=== PATIENT | female | born 1940 | race Caucasian/White ===

== ENCOUNTER 2020-08-17 09:51 | Outpatient (REF) | payer SELFPAY | END 2020-08-17 09:52 | disposition home or self-care (01) | LOC: HO.HAP 09:51 | PROVIDERS: PCP Internal Medicine; Referring Provider Internal Medicine; Visit Provider Internal Medicine | DX: Z13.89 Encounter for screening for other disorder (principal) | CPT/HCPCS: 92700 ==

== ENCOUNTER 2020-08-24 10:11 | Outpatient (REF) | payer MEDICARE, OTHER, SELFPAY ==
[2020-08-24 11:39] LABS: Glucose Urine UA NEG (NEG); Leukocyte Esterase Urine NEG (NEG); Nitrite Urine NEG (NEG); Urine Blood NEG (NEG); Urine Ketones NEG (NEG); Urine Protein NEG (NEG-TRACE)
[2020-08-24 11:41] LABS: Hemoglobin 12.2 g/dl (12.0-16.0); Mean Corpuscular Hemoglobin 31.9 pg (27.0-33.0); Mean Corpuscular Volume 96.6 fL (80-98); Mean Platelet Volume 10.4 fL (9.4-12.3); Platelet Count 245 X10*3/uL (160-400); Red Blood Count 3.83 X10*6/uL (4.20-5.50); Red Cell Distribution Width 11.7 % (11.0-16.0); White Blood Count 6.9 X10*3/uL (4.8-10.8)
[2020-08-24 11:55] LABS: Appearance Urine CLEAR; Color Urine YELLOW
[2020-08-24 12:28] LABS: Alanine Aminotransferase 13 U/L (0-31); Albumin Level 4.2 g/dL (3.5-5.0); Alkaline Phosphatase 72 U/L (39-117); Anion Gap 14 (12-20); Aspartate Amino Transferase 20 U/L (5-31); Bilirubin Total 0.3 mg/dL (0.0-1.0); Blood Urea Nitrogen 19 mg/dL (9-16); Calcium 8.7 mg/dL (8.4-10.2); Carbon Dioxide 27 mmol/L (22-29); Chloride 106 mmol/L (96-108); Cholesterol 193 mg/dL; Estimated Glomerular Filt Rate 52; Glucose Fasting 88 mg/dL (60-99); HDL Cholesterol 47 mg/dL; LDL Cholesterol Calculated 130 mg/dl; Potassium 5.2 mmol/l (3.3-5.1); Sodium 142 mmol/L (135-145); Total Protein 7.4 g/dL (6.5-8.0); Triglycerides 80 mg/dL
[2020-08-24 12:30] LABS: Thyroid Stimulating Hormone 0.76 mIU/mL (0.32-4.0)
== END 2020-08-24 10:12 | disposition home or self-care (01) ==
LOC: HO.HMGCLDS 10:11
PROVIDERS: Absent Provider Internal Medicine Nephrology; PCP Internal Medicine; Visit Provider Internal Medicine
DX: E78.00 Pure hypercholesterolemia, unspecified (principal); I10 Essential (primary) hypertension; R35.1 Nocturia; M15.9 Polyosteoarthritis, unspecified; E55.9 Vitamin D deficiency, unspecified; Z12.31 Encounter for screening mammogram for malignant neoplasm of breast
CPT/HCPCS: 36415; 80053; 80061; 81003; 82306; 84443; 85027; 87086

== ENCOUNTER 2020-08-30 13:46 | Outpatient (REF) | payer MEDICARE, OTHER, SELFPAY ==
[2020-08-30 14:40] LABS: Glucose Urine UA NEG (NEG); Leukocyte Esterase Urine 2+ (NEG); Nitrite Urine NEG (NEG); Specific Gravity - Urine 1.025 (1.005-1.025); Urine Blood 1+ (NEG); Urine Ketones 5 MG/DL (NEG); Urine Protein TRACE MG/DL (NEG-TRACE)
[2020-08-30 14:41] LABS: Appearance Urine CLOUDY; Color Urine YELLOW
[2020-08-30 14:51] LABS: Squamous Epithelial Cell Urine TRACE /LPF
[2020-08-30 14:52] LABS: Bacteria Urine 4+ /LPF
== END 2020-08-30 13:47 | disposition home or self-care (01) ==
LOC: HO.LAB 13:46
PROVIDERS: PCP Internal Medicine; Visit Provider Internal Medicine
DX: R30.0 Dysuria (principal); R10.2 Pelvic and perineal pain
CPT/HCPCS: 81001; 87086; 87088; 87186

== ENCOUNTER 2020-10-02 12:14 | Outpatient (REF) | payer MEDICARE, OTHER, SELFPAY ==
--- NOTE | 2020-10-02 12:19 | MM_ITS ---
EXAMINATION: MM SCREENING DIGITAL BREAST TOMOSYNTHESIS, BILATERAL CLINICAL INFORMATION: Screening. Asymptomatic. The lifetime risk of breast cancer based on the Tyrer-Cuzick Model is under 2%. COMPARISON: Outside mammography: 04/10/2019, 04/06/2018, 03/10/2017 ([facility]). TECHNIQUE: Digital breast tomosynthesis is performed in both the craniocaudal and mediolateral oblique views along with computer-aided detection (CAD). Synthesized 2D images are generated from the tomosynthesis. FINDINGS: There are scattered areas of fibroglandular density (ACR BI-RADS breast composition Category b). There are no significant masses, abnormal calcifications, or other abnormalities. There are ductal secretory calcifications posterior central left breast, coarser than on prior outside exams. Parenchymal pattern is otherwise similar to prior studies. No developing density. The axilla and skin contours are unremarkable. MM/MM tomosynthesis screening BI IMPRESSION: No significant changes from prior outside studies. ASSESSMENT: BI-RADS 2: Benign RECOMMENDATION: Routine annual mammography screening. This patient's information was entered into a reminder system with a target due date for their next mammogram.
== END 2020-10-02 12:15 | disposition home or self-care (01) ==
LOC: HO.MAMMO 12:14
PROVIDERS: Visit Provider Internal Medicine
DX: Z12.31 Encounter for screening mammogram for malignant neoplasm of breast (principal)
CPT/HCPCS: 77063; 77067

== ENCOUNTER 2020-11-16 13:32 | Outpatient (REF) | payer SELFPAY | END 2020-11-16 13:33 | disposition home or self-care (01) | LOC: HO.HAP 13:32 | PROVIDERS: Visit Provider Internal Medicine | DX: Z13.89 Encounter for screening for other disorder (principal) ==

== ENCOUNTER 2020-11-29 14:59 | Outpatient (REF) | payer SELFPAY | END 2020-11-29 15:00 | disposition home or self-care (01) | LOC: HO.HAP 14:59 | PROVIDERS: Visit Provider Internal Medicine | DX: Z46.1 Encounter for fitting and adjustment of hearing aid (principal); H90.3 Sensorineural hearing loss, bilateral | CPT/HCPCS: V5014 ==

== ENCOUNTER 2020-12-29 15:30 | Outpatient (REF) | payer SELFPAY | END 2020-12-29 15:31 | disposition home or self-care (01) | LOC: HO.HAP 15:30 | PROVIDERS: Visit Provider Internal Medicine | DX: Z13.89 Encounter for screening for other disorder (principal) ==

== ENCOUNTER 2021-01-09 10:44 | Outpatient (REF) | payer MEDICARE, OTHER, SELFPAY ==
--- NOTE | ~2021-01-09 | MM_ITS ---
EXAMINATION: BONE DENSITOMETRY CLINICAL INDICATION: Screening for osteoporosis. COMPARISON: Previous BD dated 01/30/2018 and baseline BD dated 10/26/2007. TECHNIQUE: Using a MediaV DXA System (software version: 13.1) manufactured by [email or web address], dual-energy x-ray absorptiometry was performed of the lumbar spine and left hip. The images are of good technical quality. Summary results are attached. FINDINGS: AP SPINE L1-L4: Current: BMD 0.991 g/cm2, Z-score 0.3, T-score -1.6, osteopenia, 6.7% decrease from previous, 12.2% decrease from baseline (<5% change is not significant). Prior: BMD 1.062 g/cm2. Baseline: BMD 1.129 g/cm2. LEFT FEMUR, NECK: Current: BMD 0.907 g/cm2, Z-score 1.3, T-score -0.9, normal. Prior: BMD 0.864 g/cm2. Baseline: BMD 1.052 g/cm2. LEFT FEMUR, TOTAL: Current: BMD 0.798 g/cm2, Z-score 0.4, T-score -1.7, osteopenia, 1.6% decrease from previous, 26.0% decrease from baseline (<5% change is not significant). Prior: BMD 0.811 g/cm2. Baseline: BMD 1.078 g/cm2. IDENTIFIED RISK FACTORS: Osteoporosis, height loss, family history (parental hip fracture) menopause, hysterectomy, bilateral oophorectomy. HISTORY OF FRACTURE: None listed. MEDICATIONS: Multivitamin. MM/XR DEXA axial skeleton IMPRESSION: 1. DIAGNOSIS: Osteopenia based on the lowest T-score value of -1.7 in the total femur applying World Health Organization criteria. 2. 10-YEAR FRACTURE RISK PREDICTION, FRAX: Major osteoporotic fracture (clinical spine, forearm, hip or shoulder) 19.2%. Hip fracture 9.7%. 3. Treatment Recommendations: NOF guidelines recommend consideration for treatment in postmenopausal women and men age 50 and older presenting with the following: -A hip or vertebral (clinical or morphometric) fracture. -T-score less than or equal to -2.5 at the femoral neck or spine after appropriate evaluation to exclude secondary causes. -Low bone mass at the hip or spine and a 10-year fracture probability by FRAX of greater than or equal to 3% for hip fracture or greater than or equal to 20% for major osteoporotic fracture based on the [place] adapted WHO algorithm. 4. Other Recommendations: All treatment decisions require clinical judgment and consideration of individual patient factors, including patient preferences, comorbidities, previous drug use, risk factors not captured in the FRAX model (e.g. frailty, falls, vitamin D deficiency, increased bone turnover, interval significant decline in bone density) and possible under or overestimation of fracture risk by FRAX. Additional medical evaluation for secondary cause of low bone mineral density may be appropriate. FUTURE SCAN RECOMMENDATION: People with diagnosed cases of osteoporosis or at high risk for fracture should have regular bone mineral density tests. For patients eligible for Medicare, routine testing is allowed once every 2 years. The testing frequency can be increased to one year for patients who have rapidly progressing disease, those who are receiving or discontinuing medical therapy to restore bone mass, or have additional risk factors.
== END 2021-01-09 10:45 | disposition home or self-care (01) ==
LOC: HO.MAMMO 10:44
PROVIDERS: Visit Provider Obstetrics & Gynecology
DX: Z13.820 Encounter for screening for osteoporosis (principal); Z78.0 Asymptomatic menopausal state; R29.890 Loss of height; Z90.710 Acquired absence of both cervix and uterus; Z90.722 Acquired absence of ovaries, bilateral
CPT/HCPCS: 77080

== ENCOUNTER 2021-01-19 14:38 | Outpatient (REF) | payer SELFPAY | END 2021-01-19 14:39 | disposition home or self-care (01) | LOC: HO.HAP 14:38 | PROVIDERS: Visit Provider Internal Medicine | DX: Z13.89 Encounter for screening for other disorder (principal) ==

== ENCOUNTER 2021-01-22 10:04 | Outpatient (REF) | payer MEDICARE, OTHER, SELFPAY ==
--- NOTE | ~2021-01-22 | CT_ITS ---
EXAMINATION: CT ABDOMEN AND PELVIS WITHOUT CONTRAST CLINICAL INFORMATION: Urinary tract infection. COMPARISON: CT abdomen and pelvis dated 10/21/2019. TECHNIQUE: Multidetector volumetric imaging was performed from the superior aspect of the liver through the pubic symphysis. Sagittal and coronal reformatted images were obtained on the technologist's workstation. This CT examination was performed using dose optimization techniques as appropriate, variously including the following: *Automated exposure control *Adjustment of mA and/or kV according to patient size (this includes techniques or standardized protocols for targeted exams where dose is matched to indication/reason for exam; i.e. extremities or head) *Use of iterative reconstruction technique DLP: 339 mGy-cm FINDINGS: LUNG BASES: The visualized lung bases are unremarkable. LIVER, GALLBLADDER, AND BILIARY TREE: The liver is normal in size, shape, and attenuation. No focal hepatic lesion or biliary ductal dilatation is present. The gallbladder is surgically absent. PANCREAS: Unremarkable. SPLEEN: Unremarkable. ADRENAL GLANDS: Unremarkable. KIDNEYS AND URETERS: The kidneys are normal in size, shape, and attenuation. No hydronephrosis, hydroureter, or calculi seen. No perinephric stranding. BLADDER: No abnormal wall thickening, mass or calculus is seen. There is a tiny gas locule seen within the nondependent bladder (6:80 and 4:548). GASTROINTESTINAL TRACT: There is mild diverticulosis, without acute diverticulitis. There is a moderate stool burden. There is formed stool seen within distal small bowel loops (small bowel feces sign). No ceci bowel obstruction, free intraperitoneal air or abscess is seen. The vermiform appendix is not identified with certainty. ABDOMINAL WALL: There is a small fat-containing umbilical hernia. LYMPH NODES: Normal. VASCULAR: There is mild aortoiliac atherosclerotic calcification. No abdominal aortic aneurysm is seen. PELVIC VISCERA: Surgically absent. No pelvic mass, free fluid or lymphadenopathy is seen. OSSEOUS STRUCTURES: There is multi-level thoracolumbar degenerative disc disease and spondylosis. Degenerative disc disease is most pronounced at T11-T12 and L4-L5, with vacuum phenomenon. There are degenerative changes of the hips, severe on the left. No acute or aggressive osseous abnormality is seen. CT/CT abdomen pelvis wo con IMPRESSION: 1. No urinary calculus or obstructive uropathy is seen bilaterally. No bladder wall thickening is noted. There is a small locule of gas noted within the nondependent bladder, which can be associated with recent instrumentation or infection with a gas-forming organism. Recommend correlation with the patient's most recent urinalysis. 2. There is formed stool within distal small bowel loops (small bowel feces sign), suggesting delayed transit. No bowel ceci obstruction is seen. Recommend clinical correlation and follow-up imaging as clinically warranted. 3. There is mild diverticulosis, without acute diverticulitis. 4. The gallbladder and uterus are surgically absent. 5. No abdominopelvic mass, free fluid or lymphadenopathy is seen. 6. There are multi-level degenerative changes of the thoracolumbar spine.
== END 2021-01-22 10:05 | disposition home or self-care (01) ==
LOC: HO.CT 10:04
PROVIDERS: PCP Internal Medicine; Visit Provider Urology
DX: N39.0 Urinary tract infection, site not specified (principal)
CPT/HCPCS: 74176

== ENCOUNTER 2021-01-29 10:11 | Outpatient (REF) | payer MEDICARE, OTHER, SELFPAY ==
[2021-01-29 11:24] LABS: MANUAL DIFF FLAG NO
[2021-01-29 11:35] LABS: Glucose Urine UA NEG (NEG); Leukocyte Esterase Urine NEG (NEG); Nitrite Urine NEG (NEG); Specific Gravity - Urine 1.015 (1.005-1.025); Urine Blood NEG (NEG); Urine Ketones NEG (NEG); Urine Protein NEG (NEG-TRACE)
[2021-01-29 11:40] LABS: Appearance Urine CLEAR; Color Urine YELLOW
[2021-01-29 11:43] LABS: Basophils Absolute Auto 0.1 X10*3/uL (0.0-0.2); Eosinophils Absolute Auto 0.3 X10*3/uL (0.0-0.4); Eosinophils Percent Auto 4.7 % (0-4); Hematocrit 37.2 % (37-47); Hemoglobin 12.1 g/dl (12.0-16.0); Imm Gran Abs Auto 0.01 X10*3/uL (0.00-0.03); Imm Gran Pct Auto 0.2 % (0.0-0.4); Lymphocytes Absolute Auto 1.6 X10*3/uL (1.2-4.9); Lymphocytes Percent Auto 28.5 % (20-40); Mean Corpuscular HGB Conc 32.5 g/dl (31.0-35.0); Mean Corpuscular Hemoglobin 31.7 pg (27.0-33.0); Mean Corpuscular Volume 97.4 fL (80-98); Mean Platelet Volume 10.5 fL (9.4-12.3); Monocytes Absolute Auto 0.6 X10*3/uL (0.1-1.2); Monocytes Percent Auto 10.1 % (2-11); Neutrophils Absolute Auto 3.2 X10*3/uL (2.0-8.3); Neutrophils Percent Auto 55.5 % (45-73); Platelet Count 231 X10*3/uL (160-400); Red Blood Count 3.82 X10*6/uL (4.20-5.50); Red Cell Distribution Width 11.9 % (11.0-16.0); White Blood Count 5.7 X10*3/uL (4.8-10.8)
[2021-01-29 11:55] LABS: RBC Urine 0 /HPF (0); Squamous Epithelial Cell Urine TRACE /LPF; WBC Urine 0 /HPF (0-4)
[2021-01-29 12:09] LABS: Free T4 (Free Thyroxine) 0.87 ng/dL (0.71-1.85); Thyroid Stimulating Hormone 0.92 uIU/mL (0.32-4.0)
[2021-01-29 12:10] LABS: Alanine Aminotransferase 17 U/L (0-31); Albumin Level 4.3 g/dL (3.5-5.0); Alkaline Phosphatase 67 U/L (39-117); Anion Gap 13 (12-20); Aspartate Amino Transferase 20 U/L (5-31); Bilirubin Total 0.5 mg/dL (0.0-1.0); Blood Urea Nitrogen 19 mg/dL (9-16); Calcium 9.3 mg/dL (8.4-10.2); Carbon Dioxide 25 mmol/L (22-29); Chloride 108 mmol/L (96-108); Estimated Glomerular Filt Rate 52; Glucose Random 93 mg/dL (60-115); Potassium 5.4 mmol/L (3.3-5.1); Sodium 141 mmol/L (135-145); Total Protein 7.4 g/dL (6.5-8.0)
== END 2021-01-29 10:12 | disposition home or self-care (01) ==
LOC: HO.HMGCLDS 10:11
PROVIDERS: PCP Internal Medicine; Visit Provider Internal Medicine
DX: I10 Essential (primary) hypertension (principal); R68.89 Other general symptoms and signs; R30.0 Dysuria
CPT/HCPCS: 36415; 80053; 81001; 84439; 84443; 85025; 87086

== ENCOUNTER 2021-03-08 14:09 | Outpatient (REF) | payer MEDICARE, OTHER, SELFPAY ==
[2021-03-08 15:21] LABS: Potassium 5.3 mmol/L (3.3-5.1)
[2021-03-08 15:49] LABS: Vitamin D 25-OH Total 39.7 ng/mL (>30)
== END 2021-03-08 14:10 | disposition home or self-care (01) ==
LOC: HO.LAB 14:09
PROVIDERS: PCP Internal Medicine; Visit Provider Internal Medicine
DX: E87.5 Hyperkalemia (principal); E55.9 Vitamin D deficiency, unspecified
CPT/HCPCS: 36415; 82306; 84132

== ENCOUNTER 2021-04-05 09:00 | Outpatient (REF) | payer MEDICARE, OTHER, SELFPAY ==
[2021-04-05 10:45] LABS: Albumin Level 4.3 g/dL (3.5-5.0); Anion Gap 14 (12-20); Blood Urea Nitrogen 22 mg/dL (9-16); Calcium 9.5 mg/dL (8.4-10.2); Carbon Dioxide 26 mmol/L (22-29); Chloride 108 mmol/L (96-108); Estimated Glomerular Filt Rate 52; Glucose Random 92 mg/dL (60-115); Sodium 143 mmol/L (135-145)
== END 2021-04-05 09:01 | disposition home or self-care (01) ==
LOC: HO.LAB 09:00
PROVIDERS: PCP Internal Medicine; Visit Provider Internal Medicine
DX: M15.9 Polyosteoarthritis, unspecified (principal); I10 Essential (primary) hypertension
CPT/HCPCS: 36415; 80048; 82040

== ENCOUNTER 2021-04-06 15:15 | Outpatient (REF) | payer SELFPAY | END 2021-04-06 15:16 | disposition home or self-care (01) | LOC: HO.HAP 15:15 | PROVIDERS: Visit Provider Internal Medicine | DX: Z13.89 Encounter for screening for other disorder (principal) ==

== ENCOUNTER 2021-05-11 11:44 | Outpatient (REF) | payer MEDICARE, OTHER, SELFPAY ==
[2021-05-11 12:26] LABS: Glucose Urine UA NEG (NEG); Leukocyte Esterase Urine NEG (NEG); Nitrite Urine NEG (NEG); Specific Gravity - Urine <= 1.005 (1.005-1.025); Urine Blood NEG (NEG); Urine Ketones NEG (NEG); Urine Protein NEG (NEG-TRACE)
[2021-05-11 12:27] LABS: Appearance Urine CLEAR; Color Urine STRAW
== END 2021-05-11 11:45 | disposition home or self-care (01) ==
LOC: HO.LAB 11:44
PROVIDERS: PCP Internal Medicine; Visit Provider Internal Medicine
DX: R30.0 Dysuria (principal)
CPT/HCPCS: 81003; 87086

== ENCOUNTER 2021-06-12 13:23 | Outpatient (REF) | payer MEDICARE, OTHER, SELFPAY ==
[2021-06-12 14:08] LABS: Glucose Urine UA NEG (NEG); Leukocyte Esterase Urine TRACE (NEG); Nitrite Urine NEG (NEG); Urine Blood TRACE (NEG); Urine Ketones NEG (NEG); Urine Protein NEG (NEG-TRACE)
[2021-06-12 14:14] LABS: Appearance Urine CLEAR; Color Urine YELLOW
[2021-06-12 14:46] LABS: Bacteria Urine TRACE /LPF; RBC Urine 0-2 /HPF (0); WBC Urine 0-2 /HPF (0-4)
== END 2021-06-12 13:24 | disposition home or self-care (01) ==
LOC: HO.LAB 13:23
PROVIDERS: PCP Internal Medicine; Visit Provider Internal Medicine
DX: R30.0 Dysuria (principal)
CPT/HCPCS: 81001; 87086; 87088; 87186

== ENCOUNTER 2021-08-10 11:42 | Outpatient (REF) | payer MEDICARE, OTHER, SELFPAY ==
[2021-08-10 13:11] LABS: Appearance Urine HAZY; Color Urine YELLOW; Glucose Urine UA NEG (NEG); Leukocyte Esterase Urine 3+ (NEG); Nitrite Urine NEG (NEG); Urine Blood TRACE (NEG); Urine Ketones NEG (NEG); Urine Protein NEG (NEG-TRACE)
[2021-08-10 13:22] LABS: Bacteria Urine 4+ /LPF; RBC Urine 0-2 /HPF (0); WBC Clumps Urine NOTED; WBC Urine 30-49 /HPF (0-4)
== END 2021-08-10 11:43 | disposition home or self-care (01) ==
LOC: HO.LAB 11:42
PROVIDERS: PCP Internal Medicine; Visit Provider Internal Medicine
DX: R30.0 Dysuria (principal)
CPT/HCPCS: 81001; 87086; 87088; 87186

== ENCOUNTER 2021-09-18 09:03 | Outpatient (REF) | payer MEDICARE, OTHER, SELFPAY ==
[2021-09-18 09:25] LABS: MANUAL DIFF FLAG NO
[2021-09-18 09:38] LABS: Appearance Urine CLEAR; Color Urine YELLOW; Glucose Urine UA NEG (NEG); Leukocyte Esterase Urine NEG (NEG); Nitrite Urine NEG (NEG); PH 6.5 (5.0-8.0); Specific Gravity - Urine <= 1.005 (1.005-1.025); Urine Blood NEG (NEG); Urine Ketones NEG (NEG); Urine Protein NEG (NEG-TRACE)
[2021-09-18 09:39] LABS: Basophils Absolute Auto 0.1 X10*3/uL (0.0-0.2); Basophils Percent Auto 0.9 % (0-2); Eosinophils Absolute Auto 0.3 X10*3/uL (0.0-0.4); Eosinophils Percent Auto 5.4 % (0-4); Hematocrit 34.3 % (37.0-47.0); Hemoglobin 11.3 g/dl (12.0-16.0); Imm Gran Abs Auto 0.01 X10*3/uL (0.00-0.03); Imm Gran Pct Auto 0.2 % (0.0-0.4); Lymphocytes Absolute Auto 1.6 X10*3/uL (1.2-4.9); Lymphocytes Percent Auto 28.3 % (20-40); Mean Corpuscular HGB Conc 32.9 g/dl (31.0-35.0); Mean Corpuscular Hemoglobin 32.3 pg (27.0-33.0); Mean Platelet Volume 9.7 fL (9.4-12.3); Monocytes Absolute Auto 0.7 X10*3/uL (0.1-1.2); Monocytes Percent Auto 11.3 % (2-11); Neutrophils Absolute Auto 3.1 x10*3/uL (2.0-8.3); Neutrophils Percent Auto 53.9 % (45-73); Platelet Count 221 X10*3/uL (160-400); Red Cell Distribution Width 11.9 % (11.0-16.0); White Blood Count 5.7 X10*3/uL (4.8-10.8)
[2021-09-18 10:22] LABS: Alanine Aminotransferase 14 U/L (0-31); Albumin Level 4.2 g/dL (3.5-5.0); Alkaline Phosphatase 63 U/L (39-117); Anion Gap 11 (12-20); Aspartate Amino Transferase 19 U/L (5-31); Bilirubin Total 0.4 mg/dL (0.0-1.0); Blood Urea Nitrogen 19 mg/dL (9-16); Calcium 9.4 mg/dL (8.4-10.2); Carbon Dioxide 28 mmol/L (22-29); Chloride 107 mmol/L (96-108); Cholesterol 202 mg/dL; Estimated Glomerular Filt Rate 53; Glucose Random 99 mg/dL (60-115); HDL Cholesterol 47 mg/dL; LDL Cholesterol Calculated 134 mg/dl; Potassium 5.2 mmol/L (3.3-5.1); Sodium 141 mmol/L (135-145); Total Protein 7.2 g/dL (6.5-8.0); Triglycerides 106 mg/dL
[2021-09-18 10:44] LABS: Thyroid Stimulating Hormone 1.91 uIU/mL (0.32-4.0); Vitamin D 25-OH Total 31.1 ng/mL (>30)
== END 2021-09-18 09:04 | disposition home or self-care (01) ==
LOC: HO.LAB 09:03
PROVIDERS: PCP Internal Medicine; Referring Provider Internal Medicine Nephrology; Visit Provider Internal Medicine
DX: I10 Essential (primary) hypertension (principal); E78.00 Pure hypercholesterolemia, unspecified; R30.0 Dysuria; E55.9 Vitamin D deficiency, unspecified
CPT/HCPCS: 36415; 80053; 80061; 81003; 82306; 84443; 85025; 87086

== ENCOUNTER 2021-09-20 12:30 | Outpatient (REF) | payer MEDICARE, OTHER, SELFPAY ==
--- NOTE | 2021-09-24 13:49 | MHC.AU.AHA ---
Adult Audiological Evaluation Date of Visit: 09/20/21 [employer]ated Fabrics Used: Not Applicable Reason for Appointment: Audiologic re-evaluation due to question of change in hearing ability. 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 Izzy also reports she has been having trouble with her hearing aids charging properly. Previous Hearing Test Results: 07/07/2020 [facility] Mild to severe mixed hearing loss bilaterally with 96% speech understanding for the right ear and 92% for the left ear at 70 dB HL. Ear History: Bothersome Tinnitus/Ringing/Noises in Ears: Yes Medical History: Medical History: High Blood Pressure, Chronic Kidney Disease, blocked parotid gland (right) Medication List: Amlodipine, Carvedilol, Fish Oil, and Multivitamin Hearing Instrument History- Right Ear: Fire Medic: HiWiFi Model: Xiaoi Roberteo M 70-R Serial Number: [id number] Battery Size: Rechargeable Repair Warranty: 05/15/2022 Loss and Damage Warranty: 05/15/2022 Dispensed By: [facility] Date of Fittin03/04/2019 Hearing Instrument History- Left Ear: Fire Medic: HiWiFi Model: Xiaoi Roberteo M70-R Serial Number: [id number] Battery Size: Rechargeable Warranty: 05/15/2022 Loss and Damage Warranty: 05/15/2022 Dispensed By: [facility] Date of Fittin03/04/2019 Otoscopy: Right Ear: Small amount of non-occluding cerumen with dull tympanic membrane Left Ear: Unremarkable Tympanometry: Not performed at today's visit due to equipment problem Hearing Evaluation: Transducer(s) Used: Insert Earphones Bone Conduction Method: Conventional Audiometry Stimuli Used: Pure Tones Right Ear: Description of Hearing: Borderline normal thresholds at 250 and 500 Hz, dropping to a moderately-severe sensorineural hearing loss. Left Ear: Description of Hearing: Borderline normal thresholds at 250 and 500 Hz, dropping to a moderately-severe sensorineural hearing loss. Speech Recognition Threshold (SRT): Method Used: Monitored Live Voice Stimuli Used: Spondee Words Right Ear: 30 dB HL Left Ear: 30 dB HL Word Discrimination: Method: Recorded Lists Word Lists Used: NU-6 Right Ear: 92% at 70 dB HL Left Ear: 88% at 70 dB HL Comparison: Compared to 2020 results, thresholds at 250 and 6142-2297 Hz have improved 10-15 dB with a slight decrease of 5-10 dB at 3628-8229 Hz, bilaterally. Interpretation of Results: Discussed with Izzy if the blocked parotid gland is inflammed, her ear(s) may feel blocked with decreased hearing intermittently. She plans to return to [facility] for follow-up of the parotid gland. Recommendations: Hearing aid maintenance performed today. Hearing aid(s) reprogrammed with updated test results. Ordering replacement center customer service associate. Will call Izzy when center customer service associate is received. Audiological re-evaluation in one year. Will send a reminder card. Diagnosis: Primary Diagnosis: H90.3 Bilateral Sensorineural Hearing Loss Services Performed: Comprehensive Audiological Evaluation (CPT 66636) Signature: Provider: Nguyễn Madden, CCC-A
== END 2021-09-20 12:31 | disposition home or self-care (01) ==
LOC: HO.SH 12:30
PROVIDERS: Visit Provider Internal Medicine
DX: H90.3 Sensorineural hearing loss, bilateral (principal)
CPT/HCPCS: 92557

== ENCOUNTER 2021-09-25 15:26 | Outpatient (REF) | payer MEDICARE, OTHER, SELFPAY ==
[2021-09-25 15:45] LABS: MANUAL DIFF FLAG NO
[2021-09-25 16:24] LABS: Basophils Percent Auto 0.5 % (0-2); Eosinophils Absolute Auto 0.3 X10*3/uL (0.0-0.4); Eosinophils Percent Auto 3.3 % (0-4); Hematocrit 36.3 % (37.0-47.0); Hemoglobin 11.9 g/dl (12.0-16.0); Imm Gran Abs Auto 0.02 X10*3/uL (0.00-0.03); Imm Gran Pct Auto 0.2 % (0.0-0.4); Lymphocytes Absolute Auto 2.3 X10*3/uL (1.2-4.9); Lymphocytes Percent Auto 26.8 % (20-40); Mean Corpuscular HGB Conc 32.8 g/dl (31.0-35.0); Mean Corpuscular Volume 97.6 fL (80.0-98.0); Mean Platelet Volume 10.1 fL (9.4-12.3); Monocytes Absolute Auto 0.8 X10*3/uL (0.1-1.2); Monocytes Percent Auto 8.8 % (2-11); Neutrophils Absolute Auto 5.2 x10*3/uL (2.0-8.3); Neutrophils Percent Auto 60.4 % (45-73); Platelet Count 236 X10*3/uL (160-400); Red Blood Count 3.72 X10*6/uL (4.20-5.50); Red Cell Distribution Width 11.7 % (11.0-16.0); White Blood Count 8.7 X10*3/uL (4.8-10.8)
[2021-09-25 16:53] LABS: Iron 86 mcg/dL (30-160); Percent Iron Saturation 35 % (15-50); Total Iron Binding Capacity 247 mcg/dL (228-428); Unsaturated Iron Binding 161 ug/dL
[2021-09-25 17:13] LABS: Ferritin 251 ng/mL (10-250)
[2021-09-25 17:28] LABS: Folate > 20.0 ng/mL (> or = 4.0); Vitamin B12 770 pg/mL (200-900)
== END 2021-09-25 15:27 | disposition home or self-care (01) ==
LOC: HO.LAB 15:26
PROVIDERS: PCP Internal Medicine; Visit Provider Internal Medicine
DX: D64.9 Anemia, unspecified (principal)
CPT/HCPCS: 36415; 82607; 82728; 82746; 83540; 85025

== ENCOUNTER 2021-10-02 15:48 | Outpatient (REF) | payer SELFPAY | END 2021-10-02 15:49 | disposition home or self-care (01) | LOC: HO.HAP 15:48 | PROVIDERS: Visit Provider Internal Medicine | DX: Z13.89 Encounter for screening for other disorder (principal) ==

== ENCOUNTER 2021-10-23 09:48 | Outpatient (REF) | payer MEDICARE, OTHER, SELFPAY ==
--- NOTE | ~2021-10-23 | MM_ITS ---
EXAMINATION: MM SCREENING DIGITAL BREAST TOMOSYNTHESIS, BILATERAL CLINICAL INFORMATION: Screening. Asymptomatic. The lifetime risk of breast cancer based on the Tyrer-Cuzick Model is 1%. COMPARISON: Mammography: 10/02/2020, outside mammography 04/10/2019, 04/06/2018 ([facility]). TECHNIQUE: Digital breast tomosynthesis is performed in both the craniocaudal and mediolateral oblique views along with computer-aided detection (CAD). Synthesized 2D images are generated from the tomosynthesis. FINDINGS: There are scattered areas of fibroglandular density (ACR BI-RADS breast composition Category b). There are no significant masses, abnormal calcifications, or other abnormalities. Parenchymal pattern is similar to prior studies. Again, there are focal benign ductal secretory calcifications posterior central 3:00 left breast. The axilla and skin contours are unremarkable. No significant changes. MM/MM tomosynthesis screening BI IMPRESSION: No mammographic evidence of malignancy. ASSESSMENT: BI-RADS 2: Benign RECOMMENDATION: Routine annual mammography screening. This patient's information was entered into a reminder system with a target due date for their next mammogram.
== END 2021-10-23 09:49 | disposition home or self-care (01) ==
LOC: HO.MAMMO 09:48
PROVIDERS: Visit Provider Internal Medicine
DX: Z12.31 Encounter for screening mammogram for malignant neoplasm of breast (principal)
CPT/HCPCS: 77063; 77067

== ENCOUNTER 2021-11-10 09:29 | Outpatient (REF) | payer MEDICARE, OTHER, SELFPAY ==
[2021-11-10 10:49] LABS: Appearance Urine CLOUDY; Color Urine STRAW; Glucose Urine UA NEG (NEG); Leukocyte Esterase Urine 3+ (NEG); Nitrite Urine NEG (NEG); Urine Blood 2+ (NEG); Urine Ketones NEG (NEG); Urine Protein TRACE MG/DL (NEG-TRACE)
[2021-11-10 10:59] LABS: Bacteria Urine 4+ /LPF
== END 2021-11-10 09:30 | disposition home or self-care (01) ==
LOC: HO.LAB 09:29
PROVIDERS: Visit Provider Internal Medicine
DX: R30.0 Dysuria (principal)
CPT/HCPCS: 81001; 87086; 87088; 87186

== ENCOUNTER 2021-12-20 13:00 | Outpatient (RCR) | payer MEDICARE, OTHER, SELFPAY | END 2022-01-29 14:16 | disposition home or self-care (01) | LOC: HO.PT 13:00 | PROVIDERS: PCP Internal Medicine; Visit Provider Urology | DX: R32 Unspecified urinary incontinence (principal) | CPT/HCPCS: 97110; 97112; 97162; 97530 ==

== ENCOUNTER 2021-12-22 14:30 | Outpatient (REF) | payer MEDICARE, OTHER, SELFPAY ==
[2021-12-22 15:31] LABS: Appearance Urine CLOUDY; Color Urine YELLOW; Glucose Urine UA NEG (NEG); Leukocyte Esterase Urine 3+ (NEG); Nitrite Urine NEG (NEG); Urine Blood TRACE (NEG); Urine Ketones NEG (NEG); Urine Protein TRACE MG/DL (NEG-TRACE)
[2021-12-22 15:45] LABS: Bacteria Urine 3+ /LPF; Mucus Urine 1+ /LPF; RBC Urine 0-2 /HPF (0); Squamous Epithelial Cell Urine 2+ /LPF; WBC Urine 50-75 /HPF (0-4)
== END 2021-12-22 14:31 | disposition home or self-care (01) ==
LOC: HO.LAB 14:30
PROVIDERS: PCP Internal Medicine; Visit Provider Internal Medicine
DX: R30.0 Dysuria (principal)
CPT/HCPCS: 81001; 87086; 87088; 87186

== ENCOUNTER 2022-01-08 09:23 | Outpatient (REF) | payer MEDICARE, OTHER, SELFPAY ==
[2022-01-08 09:57] LABS: MANUAL DIFF FLAG NO
[2022-01-08 10:44] LABS: Basophils Absolute Auto 0.1 X10*3/uL (0.0-0.2); Basophils Percent Auto 0.9 % (0-2); Eosinophils Absolute Auto 0.2 X10*3/uL (0.0-0.4); Hematocrit 36.9 % (37.0-47.0); Hemoglobin 11.9 g/dl (12.0-16.0); Imm Gran Abs Auto 0.03 X10*3/uL (0.00-0.03); Imm Gran Pct Auto 0.4 % (0.0-0.4); Lymphocytes Absolute Auto 1.4 X10*3/uL (1.2-4.9); Lymphocytes Percent Auto 19.9 % (20-40); Mean Corpuscular HGB Conc 32.2 g/dl (31.0-35.0); Mean Corpuscular Hemoglobin 31.6 pg (27.0-33.0); Mean Corpuscular Volume 98.1 fL (80.0-98.0); Mean Platelet Volume 10.2 fL (9.4-12.3); Monocytes Absolute Auto 0.6 X10*3/uL (0.1-1.2); Monocytes Percent Auto 8.3 % (2-11); Neutrophils Absolute Auto 4.7 x10*3/uL (2.0-8.3); Neutrophils Percent Auto 67.5 % (45-73); Platelet Count 235 X10*3/uL (160-400); Red Blood Count 3.76 X10*6/uL (4.20-5.50); Red Cell Distribution Width 11.9 % (11.0-16.0)
[2022-01-08 11:14] LABS: Alanine Aminotransferase 18 U/L (0-31); Albumin Level 4.2 g/dL (3.5-5.0); Alkaline Phosphatase 72 U/L (39-117); Anion Gap 14 (12-20); Aspartate Amino Transferase 21 U/L (5-31); Bilirubin Total 0.5 mg/dL (0.0-1.0); Blood Urea Nitrogen 22 mg/dL (9-16); Calcium 9.7 mg/dL (8.4-10.2); Carbon Dioxide 25 mmol/L (22-29); Chloride 108 mmol/L (96-108); Estimated Glomerular Filt Rate 52; Glucose Random 95 mg/dL (60-115); Potassium 4.9 mmol/L (3.3-5.1); Sodium 142 mmol/L (135-145); Total Protein 7.4 g/dL (6.5-8.0); Uric Acid 6.4 mg/dL (2.4-5.7)
== END 2022-01-08 09:24 | disposition home or self-care (01) ==
LOC: HO.LAB 09:23
PROVIDERS: PCP Internal Medicine; Visit Provider Internal Medicine
DX: I10 Essential (primary) hypertension (principal); M25.579 Pain in unspecified ankle and joints of unspecified foot
CPT/HCPCS: 36415; 80053; 84550; 85025

== ENCOUNTER 2022-01-21 12:26 | Outpatient (REF) | payer SELFPAY | END 2022-01-21 12:27 | disposition home or self-care (01) | LOC: HO.HAP 12:26 | PROVIDERS: Visit Provider Internal Medicine | DX: Z46.1 Encounter for fitting and adjustment of hearing aid (principal); H90.3 Sensorineural hearing loss, bilateral | CPT/HCPCS: V5267 ==

== ENCOUNTER 2022-02-12 12:26 | Outpatient (REF) | payer SELFPAY ==
--- NOTE | 2022-02-12 12:49 | MHC.AU.HFU ---
Hearing Instrument Follow-Up- Binaural Date of Visit: 02/12/22 Right Ear: Intermediate Frame Tender: Phonak Model: Audeo M 70-R Serial Number: [id number] Repair Warranty: 05/15/2022 Loss and Damage Warranty: 05/15/2022 Battery Size: Rechargeable Color: Sand Beige Teletype Mechanic: #1 Medium Type of Dome: SMALL OPEN Type of Wax Guard: CeruShield Disk Dispensed By: [facility] Date of Fittin03/04/2019 Left Ear: Intermediate Frame Tender: Phonak Model: Audeo M70-R Serial Number: [id number] Repair Warranty: 05/15/2022 Loss and Damage Warranty: 05/15/2022 Battery Size: Rechargeable Color: Sand Beige Teletype Mechanic: #1 Medium Type of Dome: SMALL OPEN Type of Wax Guard: CeruShield Disk Dispensed By: [facility] Date of Fittin03/04/2019 Follow-Up Summary: Under warranty repaired aids fit and programmed to 09/20/21 settings. Re-paired the aids to cell phone. Recommendations: Hearing instrument follow-up or maintenance as needed. Please contact our clinic with any questions or concerns. Diagnosis Code(s): Primary Diagnosis: H90.3 Bilateral Sensorineural Hearing Loss Signature: Provider: Nguyễn Madden, CRISTIANA-A
== END 2022-02-12 12:27 | disposition home or self-care (01) ==
LOC: HO.HAP 12:26
PROVIDERS: Visit Provider Internal Medicine
DX: Z13.89 Encounter for screening for other disorder (principal)

== ENCOUNTER 2022-02-16 13:20 | Outpatient (REF) | payer MEDICARE, OTHER, SELFPAY ==
[2022-02-16 15:12] LABS: Appearance Urine CLEAR; Color Urine YELLOW; Glucose Urine UA NEG (NEG); Leukocyte Esterase Urine NEG (NEG); Nitrite Urine NEG (NEG); Specific Gravity - Urine 1.025 (1.005-1.025); Urine Blood NEG (NEG); Urine Ketones NEG (NEG); Urine Protein NEG (NEG-TRACE)
== END 2022-02-16 13:21 | disposition home or self-care (01) ==
LOC: HO.LAB 13:20
PROVIDERS: PCP Internal Medicine; Visit Provider Internal Medicine
DX: N30.00 Acute cystitis without hematuria (principal)
CPT/HCPCS: 81003

== ENCOUNTER 2022-05-08 09:52 | Outpatient (REF) | payer MEDICARE, OTHER, SELFPAY ==
[2022-05-08 10:45] LABS: Estimated Average Glucose 111 mg/dL; Hemoglobin A1c % 5.5 %
[2022-05-08 11:06] LABS: Anion Gap 12 (12-20); Blood Urea Nitrogen 18 mg/dL (9-16); Calcium 8.9 mg/dL (8.4-10.2); Carbon Dioxide 27 mmol/L (22-29); Chloride 107 mmol/L (96-108); Estimated Glomerular Filt Rate 49; Glucose Random 94 mg/dL (60-115); Potassium 5.2 mmol/L (3.3-5.1); Sodium 141 mmol/L (135-145)
== END 2022-05-08 09:53 | disposition home or self-care (01) ==
LOC: HO.LAB 09:52
PROVIDERS: PCP Internal Medicine; Visit Provider Internal Medicine
DX: I10 Essential (primary) hypertension (principal)
CPT/HCPCS: 36415; 80048; 83036

== ENCOUNTER 2022-07-12 21:00 | Outpatient (REF) | payer MEDICARE, OTHER, SELFPAY ==
[2022-07-13 09:17] LABS: Appearance Urine Cloudy; Color Urine Yellow; Glucose Urine UA Negative (Negative); Leukocyte Esterase Urine Large (3+) (Negative); Nitrite Urine Negative (Negative); PH 5.5 (5.0-9.0); UMIC TRIGGER UACC YES; Urine Blood Small (1+) (Negative); Urine Ketones Negative (Negative); Urine Protein 30 (1+) mg/dL (Neg-Trace)
[2022-07-13 09:34] LABS: Bacteria Urine Trace (None Seen); Hyaline Casts Urine 0-2 /LPF (0-2); RBC Urine 0-2 /HPF (0-2); UACC Culture Trigger YES; WBC Urine 21-50 /HPF (0-5)
== END 2022-07-12 21:01 | disposition home or self-care (01) ==
LOC: HO.LNP 21:00
PROVIDERS: Visit Provider Internal Medicine
DX: R30.0 Dysuria (principal)
CPT/HCPCS: 81001; 87086

== ENCOUNTER 2022-10-25 12:39 | Outpatient (REF) | payer MEDICARE, OTHER, SELFPAY ==
--- NOTE | ~2022-10-25 | MM_ITS ---
EXAMINATION: MM SCREENING DIGITAL BREAST TOMOSYNTHESIS, BILATERAL CLINICAL INFORMATION: Screening. Asymptomatic. The lifetime risk of breast cancer based on the Tyrer-Cuzick Model is 1%. COMPARISON: Mammography: 10/23/2021, 10/02/2020; outside mammography 04/10/2019, 04/06/2018 ([facility]) TECHNIQUE: Digital breast tomosynthesis is performed in both the craniocaudal and mediolateral oblique views along with computer-aided detection (CAD). Synthesized 2D images are generated from the tomosynthesis. FINDINGS: There are scattered areas of fibroglandular density (ACR BI-RADS breast composition Category b). There are no significant masses, abnormal calcifications, or other abnormalities. Parenchymal pattern is similar to prior studies. No developing density or architectural abnormality. There are some stable grouped ductal secretory calcifications again noted posterior central 3:00 left breast. The axilla are unremarkable. The skin contours are smooth. No significant changes. MM/MM tomosynthesis screening BI IMPRESSION: No mammographic evidence of malignancy. ASSESSMENT: BI-RADS 2: Benign RECOMMENDATION: Routine annual mammography screening. This patient's information was entered into a reminder system with a target due date for their next mammogram.
== END 2022-10-25 12:40 | disposition home or self-care (01) ==
LOC: HO.MAMMO 12:39
PROVIDERS: PCP Internal Medicine; Visit Provider Internal Medicine
DX: Z12.31 Encounter for screening mammogram for malignant neoplasm of breast (principal)
CPT/HCPCS: 77063; 77067

== ENCOUNTER 2023-01-13 07:47 | Outpatient (REF) | payer MEDICARE, OTHER, SELFPAY ==
[2023-01-13 10:39] LABS: MANUAL DIFF FLAG NO
[2023-01-13 10:56] LABS: Basophils Absolute Auto 0.1 X10*3/uL (0.0-0.2); Basophils Percent Auto 0.8 % (0-2); Eosinophils Absolute Auto 0.3 X10*3/uL (0.0-0.4); Eosinophils Percent Auto 5.3 % (0-4); Hematocrit 36.2 % (37.0-47.0); Imm Gran Abs Auto 0.02 X10*3/uL (0.00-0.03); Imm Gran Pct Auto 0.3 % (0.0-0.4); Lymphocytes Absolute Auto 1.8 X10*3/uL (1.2-4.9); Lymphocytes Percent Auto 28.5 % (20-40); Mean Corpuscular HGB Conc 33.1 g/dl (31.0-35.0); Mean Corpuscular Hemoglobin 32.2 pg (27.0-33.0); Mean Corpuscular Volume 97.1 fL (80.0-98.0); Monocytes Absolute Auto 0.7 X10*3/uL (0.1-1.2); Monocytes Percent Auto 11.2 % (2-11); Neutrophils Absolute Auto 3.5 x10*3/uL (2.0-8.3); Neutrophils Percent Auto 53.9 % (45-73); Platelet Count 226 X10*3/uL (160-400); Red Blood Count 3.73 X10*6/uL (4.20-5.50); Red Cell Distribution Width 12.1 % (11.0-16.0); White Blood Count 6.5 X10*3/uL (4.8-10.8)
[2023-01-13 11:15] LABS: Alanine Aminotransferase 13 U/L (0-31); Alkaline Phosphatase 69 U/L (39-117); Anion Gap 10 (12-20); Aspartate Amino Transferase 18 U/L (5-31); Bilirubin Total 0.5 mg/dL (0.0-1.0); Blood Urea Nitrogen 19 mg/dL (9-16); Calcium 9.3 mg/dL (8.4-10.2); Carbon Dioxide 27 mmol/L (22-29); Chloride 108 mmol/L (96-108); Cholesterol 183 mg/dL; Estimated Glomerular Filt Rate 48; Glucose Fasting 92 mg/dL (60-99); HDL Cholesterol 55 mg/dL; LDL Cholesterol Calculated 115 mg/dl; Sodium 140 mmol/L (135-145); Total Protein 6.8 g/dL (6.5-8.0); Triglycerides 65 mg/dL
[2023-01-13 11:32] LABS: Thyroid Stimulating Hormone 1.26 uIU/mL (0.32-4.0); Vitamin D 25-OH Total 37.7 ng/mL (>30)
== END 2023-01-13 07:48 | disposition home or self-care (01) ==
LOC: HO.10HDL 07:47
PROVIDERS: Visit Provider Internal Medicine
DX: E78.00 Pure hypercholesterolemia, unspecified (principal); I10 Essential (primary) hypertension; E55.9 Vitamin D deficiency, unspecified
CPT/HCPCS: 36415; 80053; 80061; 82306; 84443; 85025

== ENCOUNTER 2023-02-11 14:47 | Outpatient (REF) | payer MEDICARE, OTHER, SELFPAY ==
[2023-02-11 15:04] LABS: MANUAL DIFF FLAG NO
[2023-02-11 15:40] LABS: Basophils Absolute Auto 0.1 X10*3/uL (0.0-0.2); Basophils Percent Auto 0.9 % (0-2); Eosinophils Absolute Auto 0.3 X10*3/uL (0.0-0.4); Eosinophils Percent Auto 3.9 % (0-4); Hematocrit 37.6 % (37.0-47.0); Hemoglobin 12.4 g/dl (12.0-16.0); Imm Gran Abs Auto 0.02 X10*3/uL (0.00-0.03); Imm Gran Pct Auto 0.3 % (0.0-0.4); Lymphocytes Absolute Auto 2.1 X10*3/uL (1.2-4.9); Lymphocytes Percent Auto 27.1 % (20-40); Mean Corpuscular Volume 96.9 fL (80.0-98.0); Mean Platelet Volume 10.6 fL (9.4-12.3); Monocytes Absolute Auto 0.8 X10*3/uL (0.1-1.2); Monocytes Percent Auto 10.3 % (2-11); Neutrophils Absolute Auto 4.4 x10*3/uL (2.0-8.3); Neutrophils Percent Auto 57.5 % (45-73); Platelet Count 250 X10*3/uL (160-400); Red Blood Count 3.88 X10*6/uL (4.20-5.50); Red Cell Distribution Width 12.1 % (11.0-16.0); White Blood Count 7.7 X10*3/uL (4.8-10.8)
[2023-02-11 16:24] LABS: Iron 118 mcg/dL (30-160); Percent Iron Saturation 48 % (15-50); Total Iron Binding Capacity 247 mcg/dL (228-428); Unsaturated Iron Binding 129 ug/dL
[2023-02-11 16:53] LABS: Ferritin 252 ng/mL (10-250); Folate 18.3 ng/mL (> or = 4.0); Vitamin B12 754 pg/mL (200-900)
== END 2023-02-11 14:48 | disposition home or self-care (01) ==
LOC: HO.LAB 14:47
PROVIDERS: PCP Internal Medicine; Visit Provider Internal Medicine
DX: R53.81 Other malaise (principal); R53.83 Other fatigue; D64.9 Anemia, unspecified
CPT/HCPCS: 36415; 82607; 82728; 82746; 83540; 85025

== ENCOUNTER 2023-03-03 13:56 | Outpatient (REF) | payer MEDICARE, OTHER, SELFPAY ==
[2023-03-03 14:36] LABS: Appearance Urine Cloudy; Color Urine Yellow; Glucose Urine UA Negative (Negative); Leukocyte Esterase Urine Negative (Negative); Nitrite Urine Negative (Negative); Urine Blood Negative (Negative); Urine Ketones Negative (Negative); Urine Protein Negative (Neg-Trace)
== END 2023-03-03 13:57 | disposition home or self-care (01) ==
LOC: HO.LAB 13:56
PROVIDERS: PCP Internal Medicine; Visit Provider Internal Medicine
DX: R30.0 Dysuria (principal)
CPT/HCPCS: 81003; 87086

== ENCOUNTER 2023-05-08 13:44 | Outpatient (REF) | payer MEDICARE, OTHER, SELFPAY | END 2023-05-08 13:45 | disposition home or self-care (01) | LOC: HO.SH 13:44 | PROVIDERS: Visit Provider Internal Medicine | DX: Z01.118 Encounter for examination of ears and hearing with other abnormal findings (principal); H90.3 Sensorineural hearing loss, bilateral | CPT/HCPCS: 92557 ==

== ENCOUNTER 2023-05-08 15:15 | Outpatient (REF) | payer SELFPAY ==
--- NOTE | 2023-05-08 15:59 | MHC.AU.HA3 ---
Hearing Instrument Follow-Up- Binaural Date of Visit: 05/08/23 Right Ear: James, Model, Color, Serial Number: Vicky Marquez M70-R SN: [id number] Color: Sand Beige Job Compositor Repair Warranty: 05/15/2022 Job Compositor Loss and Damage Warranty: 05/15/2022 Battery Size: Rechargeable Photographic Equipment Technician/Slim Tube: 1M Earmold/Dome/CShell/SlimTip:Medium vented dome Type of Wax Guard: CeruShield Dispensed By: [facility] Date of Fittin03/04/2019 Left Ear: James, Model, Color, Serial Number: Vicky Marquez M70-R SN: [id number] Color: Sand Bemagdiel Job Compositor Repair Warranty: 05/15/2022 Job Compositor Loss and Damage Warranty: 05/15/2022 Battery Size: Rechargeable Photographic Equipment Technician/Slim Tube: 1M Earmold/Dome/CShell/SlimTip: Medium vented dome Type of Wax Guard: CeruShield Dispensed By: [facility] Date of Fittin03/04/2019 Follow-Up Summary: Izzy returned for updated audio (see separate report) and hearing aid maintenance. She reported that she is not hearing as well, particularly while watching television, even with the hearing aids, as when she was initially fit. Her hearing has decreased slightly. Cleaned both hearing aids. Upon inspection, found multiple wax guards pushed into the receivers. Able to successfully remove all of the wax guards from the left occupational therapist rehab manager; however, could not remove all of the wax guard from the right occupational therapist rehab manager. Listening check was good for both hearing aids; however, advised Izzy if right hearing aid becomes weak or occluded due to wax guard in occupational therapist rehab manager, she will need to replace that occupational therapist rehab manager in the future. Reprogrammed the hearing aids with real ear measurements. Significantly underfit due to limits of the feedback curve. Switched to medium vented domes (from small open domes) with slight improvement. Discussed option of power dome or custom ear mold; however, Izzy already noted a sound quality difference of her own voice and improvement in clarity of others' voices so she will try these settings for now. Recommendations: Hearing instrument follow-up or maintenance as needed. Please contact our clinic with any questions or concerns. Diagnosis Code(s): Primary Diagnosis: H90.3 Bilateral Sensorineural Hearing Loss Signature: Provider: Bri Thompson, [facility]
== END 2023-05-08 15:16 | disposition home or self-care (01) ==
LOC: HO.HAP 15:15
PROVIDERS: Visit Provider Internal Medicine
DX: Z46.1 Encounter for fitting and adjustment of hearing aid (principal); H90.3 Sensorineural hearing loss, bilateral
CPT/HCPCS: V5020; V5267

== ENCOUNTER 2023-07-01 15:25 | Outpatient (REF) | payer MEDICARE, OTHER, SELFPAY ==
[2023-07-01 15:46] LABS: MANUAL DIFF FLAG NO
[2023-07-01 16:31] LABS: Basophils Absolute Auto 0.1 X10*3/uL (0.0-0.2); Basophils Percent Auto 0.7 % (0-2); Eosinophils Absolute Auto 0.7 X10*3/uL (0.0-0.4); Eosinophils Percent Auto 7.4 % (0-4); Hematocrit 32.6 % (37.0-47.0); Hemoglobin 10.8 g/dl (12.0-16.0); Imm Gran Abs Auto 0.03 X10*3/uL (0.00-0.03); Imm Gran Pct Auto 0.3 % (0.0-0.4); Lymphocytes Percent Auto 22.6 % (20-40); Mean Corpuscular HGB Conc 33.1 g/dl (31.0-35.0); Mean Corpuscular Hemoglobin 32.1 pg (27.0-33.0); Mean Platelet Volume 10.4 fL (9.4-12.3); Monocytes Percent Auto 11.2 % (2-11); Neutrophils Absolute Auto 5.1 x10*3/uL (2.0-8.3); Neutrophils Percent Auto 57.8 % (45-73); Platelet Count 239 X10*3/uL (160-400); Red Blood Count 3.36 X10*6/uL (4.20-5.50); Red Cell Distribution Width 12.5 % (11.0-16.0); White Blood Count 8.8 X10*3/uL (4.8-10.8)
[2023-07-01 17:14] LABS: Alanine Aminotransferase 11 U/L (0-31); Albumin Level 4.2 g/dL (3.5-5.0); Alkaline Phosphatase 81 U/L (39-117); Anion Gap 12 (12-20); Aspartate Amino Transferase 17 U/L (5-31); Bilirubin Total 0.3 mg/dL (0.0-1.0); Blood Urea Nitrogen 23 mg/dL (9-16); Calcium 9.7 mg/dL (8.4-10.2); Carbon Dioxide 27 mmol/L (22-29); Chloride 105 mmol/L (96-108); Estimated Glomerular Filt Rate 52; Glucose Random 90 mg/dL (60-115); Sodium 139 mmol/L (135-145); Total Protein 7.7 g/dL (6.5-8.0)
[2023-07-01 17:29] LABS: Thyroid Stimulating Hormone 0.83 uIU/mL (0.32-4.0)
== END 2023-07-01 15:26 | disposition home or self-care (01) ==
LOC: HO.LAB 15:25
PROVIDERS: PCP Internal Medicine; Visit Provider Internal Medicine
DX: I10 Essential (primary) hypertension (principal); R00.1 Bradycardia, unspecified
CPT/HCPCS: 36415; 80053; 84443; 85025

== ENCOUNTER 2023-07-17 14:27 | Outpatient (REF) | payer MEDICARE, OTHER, SELFPAY ==
[2023-07-17 14:41] LABS: MANUAL DIFF FLAG NO
[2023-07-17 15:08] LABS: Basophils Absolute Auto 0.1 X10*3/uL (0.0-0.2); Basophils Percent Auto 0.9 % (0-2); Eosinophils Absolute Auto 0.6 X10*3/uL (0.0-0.4); Eosinophils Percent Auto 6.9 % (0-4); Hematocrit 35.1 % (37.0-47.0); Hemoglobin 11.4 g/dl (12.0-16.0); Imm Gran Abs Auto 0.03 X10*3/uL (0.00-0.03); Imm Gran Pct Auto 0.3 % (0.0-0.4); Lymphocytes Absolute Auto 2.2 X10*3/uL (1.2-4.9); Mean Corpuscular HGB Conc 32.5 g/dl (31.0-35.0); Mean Corpuscular Hemoglobin 31.7 pg (27.0-33.0); Mean Corpuscular Volume 97.5 fL (80.0-98.0); Mean Platelet Volume 9.9 fL (9.4-12.3); Monocytes Absolute Auto 1.1 X10*3/uL (0.1-1.2); Monocytes Percent Auto 12.1 % (2-11); Neutrophils Absolute Auto 5.1 x10*3/uL (2.0-8.3); Neutrophils Percent Auto 55.8 % (45-73); Platelet Count 274 X10*3/uL (160-400); Red Cell Distribution Width 12.4 % (11.0-16.0); White Blood Count 9.1 X10*3/uL (4.8-10.8)
[2023-07-17 15:46] LABS: Iron 89 mcg/dL (30-160); Percent Iron Saturation 44 % (15-50); Total Iron Binding Capacity 203 mcg/dL (228-428); Unsaturated Iron Binding 114 ug/dL
[2023-07-17 16:01] LABS: Ferritin 315 ng/mL (10-250)
== END 2023-07-17 14:28 | disposition home or self-care (01) ==
LOC: HO.LAB 14:27
PROVIDERS: PCP Internal Medicine; Visit Provider Internal Medicine
DX: D64.9 Anemia, unspecified (principal)
CPT/HCPCS: 36415; 82728; 83540; 85025

== ENCOUNTER 2023-08-14 09:51 | Outpatient (REF) | payer SELFPAY | END 2023-08-14 09:52 | disposition home or self-care (01) | LOC: HO.HAP 09:51 | PROVIDERS: Visit Provider Internal Medicine | DX: Z13.89 Encounter for screening for other disorder (principal) ==

== ENCOUNTER 2023-08-28 14:00 | Outpatient (REF) | payer SELFPAY | END 2023-08-28 14:01 | disposition home or self-care (01) | LOC: HO.HAP 14:00 | PROVIDERS: Visit Provider Internal Medicine | DX: Z46.1 Encounter for fitting and adjustment of hearing aid (principal); H90.3 Sensorineural hearing loss, bilateral | CPT/HCPCS: 92700 ==

== ENCOUNTER 2023-09-02 14:42 | Outpatient (REF) | payer MEDICARE, OTHER, SELFPAY ==
[2023-09-02 14:57] LABS: MANUAL DIFF FLAG NO
[2023-09-02 15:02] LABS: Basophils Absolute Auto 0.1 X10*3/uL (0.0-0.2); Basophils Percent Auto 0.9 % (0-2); Eosinophils Absolute Auto 0.5 X10*3/uL (0.0-0.4); Eosinophils Percent Auto 6.4 % (0-4); Hematocrit 30.9 % (37.0-47.0); Hemoglobin 10.2 g/dl (12.0-16.0); Imm Gran Abs Auto 0.02 X10*3/uL (0.00-0.03); Imm Gran Pct Auto 0.2 % (0.0-0.4); Lymphocytes Absolute Auto 1.7 X10*3/uL (1.2-4.9); Lymphocytes Percent Auto 20.1 % (20-40); Mean Corpuscular Hemoglobin 31.6 pg (27.0-33.0); Mean Corpuscular Volume 95.7 fL (80.0-98.0); Mean Platelet Volume 9.3 fL (9.4-12.3); Monocytes Absolute Auto 0.8 X10*3/uL (0.1-1.2); Monocytes Percent Auto 9.6 % (2-11); Neutrophils Absolute Auto 5.3 x10*3/uL (2.0-8.3); Neutrophils Percent Auto 62.8 % (45-73); Platelet Count 412 X10*3/uL (160-400); Red Blood Count 3.23 X10*6/uL (4.20-5.50); Red Cell Distribution Width 12.7 % (11.0-16.0); White Blood Count 8.5 X10*3/uL (4.8-10.8)
[2023-09-02 15:23] LABS: Alanine Aminotransferase 11 U/L (0-31); Alkaline Phosphatase 87 U/L (39-117); Anion Gap 16 (12-20); Aspartate Amino Transferase 19 U/L (5-31); Bilirubin Total 0.2 mg/dL (0.0-1.0); Blood Urea Nitrogen 18 mg/dL (9-16); Calcium 9.3 mg/dL (8.4-10.2); Carbon Dioxide 25 mmol/L (22-29); Chloride 102 mmol/L (96-108); Estimated Glomerular Filt Rate 51; Glucose Random 96 mg/dL (60-115); Potassium 4.6 mmol/L (3.3-5.1); Sodium 138 mmol/L (135-145); Total Protein 7.9 g/dL (6.5-8.0)
== END 2023-09-02 14:43 | disposition home or self-care (01) ==
LOC: HO.LAB 14:42
PROVIDERS: PCP Internal Medicine; Visit Provider Internal Medicine
DX: I10 Essential (primary) hypertension (principal); D64.9 Anemia, unspecified
CPT/HCPCS: 36415; 80053; 85025

== ENCOUNTER 2023-11-03 11:56 | Outpatient (REF) | payer MEDICARE, OTHER, SELFPAY ==
--- NOTE | ~2023-11-03 | MM_ITS ---
EXAMINATION: MM SCREENING DIGITAL BREAST TOMOSYNTHESIS, BILATERAL CLINICAL INFORMATION: Screening. Asymptomatic. COMPARISON: Mammography: This study is compared with prior exams dating back to 2018. TECHNIQUE: Digital breast tomosynthesis is performed in both the craniocaudal and mediolateral oblique views along with computer-aided detection (CAD). Synthesized 2D images are generated from the tomosynthesis. FINDINGS: There are scattered areas of fibroglandular density (ACR BI-RADS breast composition Category b). There are no significant masses, abnormal calcifications, or other abnormalities. Few, unchanged, benign, secretory calcifications are present in the left breast. MM/MM tomosynthesis screening BI IMPRESSION: No mammographic evidence of malignancy. ASSESSMENT: BI-RADS BI-RADS 2 - Benign Findings RECOMMENDATION: Routine annual mammography screening. 1 year F/U This examination should not preclude the clinical evaluation of a suspicious palpable abnormality. This patient's information was entered into a reminder system with a target due date for their next mammogram.
== END 2023-11-03 11:57 | disposition home or self-care (01) ==
LOC: HO.MAMMO 11:56
PROVIDERS: PCP Internal Medicine; Visit Provider Internal Medicine
DX: Z12.31 Encounter for screening mammogram for malignant neoplasm of breast (principal)
CPT/HCPCS: 77063; 77067

== ENCOUNTER → 2023-11-03 12:30 | Outpatient (BNV) | payer MEDICARE, OTHER, SELFPAY | PROVIDERS: PCP Internal Medicine; Visit Provider Radiology Diagnostic Radiology | DX: Z12.31 Encounter for screening mammogram for malignant neoplasm of breast (principal) | CPT/HCPCS: 77063; 77067 ==

== ENCOUNTER 2023-11-26 13:46 | Outpatient (REF) | payer MEDICARE, OTHER, SELFPAY ==
[2023-11-26 14:07] LABS: MANUAL DIFF FLAG NO
[2023-11-26 14:42] LABS: Basophils Absolute Auto 0.1 X10*3/uL (0.0-0.2); Basophils Percent Auto 0.7 % (0-2); Eosinophils Absolute Auto 0.4 X10*3/uL (0.0-0.4); Eosinophils Percent Auto 3.9 % (0-4); Hematocrit 36.6 % (37.0-47.0); Hemoglobin 12.4 g/dl (12.0-16.0); Imm Gran Abs Auto 0.03 X10*3/uL (0.00-0.03); Imm Gran Pct Auto 0.3 % (0.0-0.4); Lymphocytes Absolute Auto 2.1 X10*3/uL (1.2-4.9); Lymphocytes Percent Auto 19.6 % (20-40); Mean Corpuscular HGB Conc 33.9 g/dl (31.0-35.0); Mean Corpuscular Hemoglobin 32.3 pg (27.0-33.0); Mean Corpuscular Volume 95.3 fL (80.0-98.0); Mean Platelet Volume 10.4 fL (9.4-12.3); Monocytes Absolute Auto 1.1 X10*3/uL (0.1-1.2); Monocytes Percent Auto 9.8 % (2-11); Neutrophils Absolute Auto 7.1 x10*3/uL (2.0-8.3); Neutrophils Percent Auto 65.7 % (45-73); Platelet Count 226 X10*3/uL (160-400); Red Blood Count 3.84 X10*6/uL (4.20-5.50); Red Cell Distribution Width 12.5 % (11.0-16.0); White Blood Count 10.8 X10*3/uL (4.8-10.8)
[2023-11-26 15:55] LABS: Ferritin 166 ng/mL (10-250)
== END 2023-11-26 13:47 | disposition home or self-care (01) ==
LOC: HO.LAB 13:46
PROVIDERS: Absent Provider Internal Medicine; PCP Internal Medicine; Visit Provider Internal Medicine
DX: R30.0 Dysuria (principal); R39.15 Urgency of urination; R32 Unspecified urinary incontinence; D64.9 Anemia, unspecified
CPT/HCPCS: 36415; 81001; 82728; 85025; 87086; 87088; 87186

== ENCOUNTER 2023-11-26 14:41 | Outpatient (REF) | payer MEDICARE, OTHER, SELFPAY ==
[2023-11-26 14:59] LABS: Appearance Urine Clear; Color Urine Yellow; Glucose Urine UA Negative (Negative); Leukocyte Esterase Urine Large (3+) (Negative); Nitrite Urine Negative (Negative); Specific Gravity - Urine <= 1.005 (1.005-1.025); UMIC TRIGGER UA YES; Urine Blood Negative (Negative); Urine Ketones Negative (Negative); Urine Protein Negative (Neg-Trace)
[2023-11-26 15:01] LABS: Bacteria Urine 4+ (None Seen); Hyaline Casts Urine 0-2 /LPF (0-2); RBC Urine 0-2 /HPF (0-2); Squamous Epithelial Cell Urine 0-2 /HPF (0-2); WBC Urine 21-50 /HPF (0-5)
== END 2023-11-26 14:42 | disposition home or self-care (01) ==
LOC: HO.LNP 14:41
PROVIDERS: Visit Provider Internal Medicine
DX: Z13.89 Encounter for screening for other disorder (principal)
CPT/HCPCS: 81001; 87086

== ENCOUNTER 2024-01-21 14:42 | Outpatient (REF) | payer MEDICARE, OTHER, SELFPAY ==
[2024-01-21 16:54] LABS: Appearance Urine Cloudy; Color Urine Yellow; Glucose Urine UA Negative (Negative); Leukocyte Esterase Urine Large (3+) (Negative); Nitrite Urine Negative (Negative); PH 6.5 (5.0-9.0); UMIC TRIGGER UACC YES; Urine Blood Negative (Negative); Urine Ketones Negative (Negative); Urine Protein Negative (Neg-Trace)
[2024-01-21 17:00] LABS: Bacteria Urine None Seen (None Seen); Hyaline Casts Urine 0-2 /LPF (0-2); RBC Urine 0-2 /HPF (0-2); UACC Culture Trigger YES; WBC Urine >50 /HPF (0-5)
== END 2024-01-21 14:43 | disposition home or self-care (01) ==
LOC: HO.LAB 14:42
PROVIDERS: PCP Internal Medicine; Visit Provider Internal Medicine
DX: R30.0 Dysuria (principal)
CPT/HCPCS: 81001; 81003; 87086

== ENCOUNTER 2024-02-12 10:30 | Outpatient (REF) | payer MEDICARE, OTHER, SELFPAY ==
[2024-02-12 10:44] LABS: MANUAL DIFF FLAG NO
[2024-02-12 11:34] LABS: Basophils Absolute Auto 0.1 X10*3/uL (0.0-0.2); Basophils Percent Auto 1.4 % (0-2); Eosinophils Absolute Auto 0.7 X10*3/uL (0.0-0.4); Eosinophils Percent Auto 11.4 % (0-4); Hematocrit 36.3 % (37.0-47.0); Hemoglobin 11.8 g/dl (12.0-16.0); Imm Gran Abs Auto 0.02 X10*3/uL (0.00-0.03); Imm Gran Pct Auto 0.3 % (0.0-0.4); Lymphocytes Absolute Auto 1.5 X10*3/uL (1.2-4.9); Lymphocytes Percent Auto 26.6 % (20-40); Mean Corpuscular HGB Conc 32.5 g/dl (31.0-35.0); Mean Corpuscular Hemoglobin 31.6 pg (27.0-33.0); Mean Corpuscular Volume 97.3 fL (80.0-98.0); Mean Platelet Volume 10.5 fL (9.4-12.3); Monocytes Absolute Auto 0.7 X10*3/uL (0.1-1.2); Monocytes Percent Auto 11.4 % (2-11); Neutrophils Absolute Auto 2.8 x10*3/uL (2.0-8.3); Neutrophils Percent Auto 48.9 % (45-73); Platelet Count 239 X10*3/uL (160-400); Red Blood Count 3.73 X10*6/uL (4.20-5.50); Red Cell Distribution Width 12.9 % (11.0-16.0); White Blood Count 5.8 X10*3/uL (4.8-10.8)
[2024-02-12 12:30] LABS: Alanine Aminotransferase 16 U/L (0-31); Albumin Level 4.2 g/dL (3.5-5.0); Alkaline Phosphatase 76 U/L (39-117); Anion Gap 11 (12-20); Aspartate Amino Transferase 21 U/L (5-31); Bilirubin Total 0.5 mg/dL (0.0-1.0); Blood Urea Nitrogen 17 mg/dL (9-16); Calcium 9.6 mg/dL (8.4-10.2); Carbon Dioxide 27 mmol/L (22-29); Chloride 109 mmol/L (96-108); Cholesterol 198 mg/dL (<200); Estimated Glomerular Filt Rate 51; Glucose Random 96 mg/dL (60-115); HDL Cholesterol 56 mg/dL (>40); Iron 100 mcg/dL (30-160); LDL Cholesterol Calculated 127 mg/dL (<100); Percent Iron Saturation 44 % (15-50); Potassium 5.1 mmol/L (3.3-5.1); Sodium 142 mmol/L (135-145); Total Iron Binding Capacity 227 mcg/dL (228-428); Total Protein 7.6 g/dL (6.5-8.0); Triglycerides 77 mg/dL (<150); Unsaturated Iron Binding 127 ug/dL
[2024-02-12 12:33] LABS: Ferritin 206 ng/mL (10-250); Free T4 (Free Thyroxine) 0.94 ng/dL (0.71-1.85); Thyroid Stimulating Hormone 1.05 uIU/mL (0.32-4.0); Vitamin D 25-OH Total 35.1 ng/mL (>30)
[2024-02-12 13:22] LABS: Folate 18.2 ng/mL (> or = 4.0)
[2024-02-12 21:05] LABS: Vitamin B12 578 pg/mL (200-900)
== END 2024-02-12 10:31 | disposition home or self-care (01) ==
LOC: HO.LAB 10:30
PROVIDERS: Visit Provider Internal Medicine
DX: I12.9 Hypertensive chronic kidney disease with stage 1 through stage 4 chronic kidney disease, or unspecified chronic kidney disease (principal); N18.31 Chronic kidney disease, stage 3a; D63.1 Anemia in chronic kidney disease; E55.9 Vitamin D deficiency, unspecified
CPT/HCPCS: 36415; 80053; 80061; 82306; 82607; 82728; 82746; 83540; 84439; 84443; 85025

== ENCOUNTER 2024-02-17 08:04 | Day surgery (SDC) | payer MEDICARE, OTHER, SELFPAY ==
[2024-02-13 14:22] VITALS: BMI 24.4
--- NOTE | 2024-02-13 15:07 | HO.ANESPROP2 ---
Documented by User: Marisol Villeda NP 02/13/24 15:08 HPI - Anesthesia Eval Consult details Narrative: 84yo F for Colonoscopy [facility] Past Medical History Medical History (Updated 02/13/24 @ 14:15 by Isatu Madison RN) Anemia Hearing loss Retinal micro-aneurysm of left eye Osteoarthritis Chronic renal insufficiency Hyperlipidemia HTN (hypertension) GERD (gastroesophageal reflux disease) Surgical History Surgical History (Updated 02/13/24 @ 14:15 by Isatu Madison RN) Hx of bilateral hip replacements Hx of tonsillectomy Hx of cholecystectomy Hx of hysterectomy H/O colonoscopy Social History Social History Patient Tobacco Use Status: Former Tobacco user Are you DNR?: No Advance Directives: No Advance Directives Information Provided: Yes Nutrition Risks: No Nutritional Risk Meds Allergies Allergy/AdvReac Type Severity Reaction Status Date / Time amoxicillin [From AUGMENTIN] Allergy Intermediate Nausea and Verified 02/17/24 08:35 Vomiting ciprofloxacin [From CIPRO] Allergy Intermediate Nausea and Verified 02/17/24 08:35 Vomiting clavulanic acid Allergy Intermediate Nausea and Verified 02/17/24 08:35 [From AUGMENTIN] Vomiting nitrofurantoin Allergy Intermediate Nausea and Verified 02/17/24 08:35 [From Macrobid] Vomiting augmentin Allergy Intermediate Nausea and Uncoded 02/17/24 08:35 Vomiting Home Medications ?Medication ?Instructions ?Recorded ?Confirmed ?Last Taken ?Type amlodipine 5 mg tablet 5 mg PO BEDTIME 02/13/24 02/16/24 02/16/24 History aspirin 81 mg tablet,delayed 81 mg PO DAILY 02/13/24 02/13/24 02/09/24 History release carvedilol phosphate 10 mg 10 mg PO DAILY 02/13/24 02/17/24 Unknown History capsule,[id number] multiphase cranberry 400 mg capsule 400 mg PO DAILY 02/13/24 02/13/24 Unknown History estradiol 0.01% (0.1 mg/gram) 1 g vaginal 3XW 02/13/24 02/13/24 Unknown History vaginal cream hydralazine 10 mg tablet 10 mg PO BID 02/13/24 02/13/24 02/17/24 History bnfpacybeoks-jttgdtqr-kscbqs tablet 1 tab PO DAILY 02/13/24 02/13/24 Unknown History omega 3-grq-arj-fish oil 1,000 mg 2 cap PO DAILY 02/13/24 02/13/24 02/09/24 History (120 mg-180 mg) capsule (Fish Oil) Exam Height,Weight and Vital Signs: Height 5 ft 4 in Weight 64.41 kg Assessment and Plan Assessment Anesthesia Assessment: Chart Reviewed Documented by User: Adam Schroeder MD 02/17/24 09:12 [facility] Past Medical History Medical History (Updated 02/13/24 @ 14:15 by Isatu Madison RN) Anemia Hearing loss Retinal micro-aneurysm of left eye Osteoarthritis Chronic renal insufficiency Hyperlipidemia HTN (hypertension) GERD (gastroesophageal reflux disease) Family History Family history of problems with anesthesia: No Surgical History Surgical History (Updated 02/13/24 @ 14:15 by Isatu Madison RN) Hx of bilateral hip replacements Hx of tonsillectomy Hx of cholecystectomy Hx of hysterectomy H/O colonoscopy History of Problems with Anesthesia: No Social History Social History Patient Tobacco Use Status: Former Tobacco user Are you DNR?: No Advance Directives: No Advance Directives Information Provided: Yes Nutrition Risks: No Nutritional Risk Meds Allergies Allergy/AdvReac Type Severity Reaction Status Date / Time amoxicillin [From AUGMENTIN] Allergy Intermediate Nausea and Verified 02/17/24 08:35 Vomiting ciprofloxacin [From CIPRO] Allergy Intermediate Nausea and Verified 02/17/24 08:35 Vomiting clavulanic acid Allergy Intermediate Nausea and Verified 02/17/24 08:35 [From AUGMENTIN] Vomiting nitrofurantoin Allergy Intermediate Nausea and Verified 02/17/24 08:35 [From Macrobid] Vomiting augmentin Allergy Intermediate Nausea and Uncoded 02/17/24 08:35 Vomiting Home Medications ?Medication ?Instructions ?Recorded ?Confirmed ?Last Taken ?Type amlodipine 5 mg tablet 5 mg PO BEDTIME 02/13/24 02/16/24 02/16/24 History aspirin 81 mg tablet,delayed 81 mg PO DAILY 02/13/24 02/13/24 02/09/24 History release carvedilol phosphate 10 mg 10 mg PO DAILY 02/13/24 02/17/24 Unknown History capsule,[id number] multiphase cranberry 400 mg capsule 400 mg PO DAILY 02/13/24 02/13/24 Unknown History estradiol 0.01% (0.1 mg/gram) 1 g vaginal 3XW 02/13/24 02/13/24 Unknown History vaginal cream hydralazine 10 mg tablet 10 mg PO BID 02/13/24 02/13/24 02/17/24 History ljoewbkmxxhl-swqpykkq-rjsaec tablet 1 tab PO DAILY 02/13/24 02/13/24 Unknown History omega 9-zom-mot-fish oil 1,000 mg 2 cap PO DAILY 02/13/24 02/13/24 02/09/24 History (120 mg-180 mg) capsule (Fish Oil) Exam Airway Mallampati Class: II TM Dist: >3cm Neck ROM: Full Assessment and Plan Assessment Anesthesia Assessment: Anesthesia Plan Discussed Final Anesthetic Review Family History of Problems with Anesthesia: No History of Problems with Anesthesia: No NPO: Yes ASA Class: II Final Preanesthetic Review: No Changes in Pt Med Stat, Meds/Allgs Chart Reviewed, Consent Obtained/Reviewed and Anes Risks/Benef Reviewed Patient Risk: Intermediate Procedure Risk: Low Anesthetic Plan Anesthetic Plan: TIVA Disposition: Standard PACU
[2024-02-17 08:22] VITALS: BP 134/48; PULSE 57; RESP 18; TEMP 36.9; O2SAT 98; BMI 24.3
[2024-02-17] MEDS: Lactated Ringers 1,000 ML 100 ML IVCONT (08:46)
--- NOTE | 2024-02-17 10:09 | MHC.SHP ---
Pre-Procedural Eval Section A - 24 Hr Update-Section A only Date of Service: 02/17/24 Section B - Complete if H&P > 30 days Chief Complaint: bowel change Details of Present Illness: see H&P no changes Relevant Family History (Specify if Yes): No Relevant Social History: None Present Medications: see Short Stay Collaborative assessment Medical History: No relevant PMH Allergies: Allergies Allergy/AdvReac Type Severity Reaction Status Date / Time amoxicillin [From AUGMENTIN] Allergy Intermediate Nausea and Verified 02/17/24 08:35 Vomiting ciprofloxacin [From CIPRO] Allergy Intermediate Nausea and Verified 02/17/24 08:35 Vomiting clavulanic acid Allergy Intermediate Nausea and Verified 02/17/24 08:35 [From AUGMENTIN] Vomiting nitrofurantoin Allergy Intermediate Nausea and Verified 02/17/24 08:35 [From Macrobid] Vomiting augmentin Allergy Intermediate Nausea and Uncoded 02/17/24 08:35 Vomiting Review of Systems Sugical H&P ROS: Negative: Constitution, Cardiovascular, Respiratory, Neurological, Psychiatric, Hem-Onc, Allergic/Immunologic, Gastrointestinal, Genitourinary, Musculoskeletal, Integumentary, Endocrine and Eyes/Ears/Nose/Throat Exam Surgical H&P Exam: Normal: HEENT, Normal: Heart, Normal: Lungs, Normal: Extremities, Normal: Abdomen, Normal: Skin and Normal: Neurological Plan Diagnosis/Plan: Unchanged I have reviewed the history and physical and performed a pertinent physical examination on my patient. No changes have occurred unless specified. Time Spent With Patient Time: Total time managing care of this patient today ____ minutes.
[2024-02-17 10:50] VITALS: BP 121/36; PULSE 70; RESP 16; TEMP 36.9; O2SAT 100
[2024-02-17 11:05] VITALS: BP 117/44; PULSE 58; RESP 16; TEMP 36.9; O2SAT 100
--- NOTE | 2024-02-17 11:30 | OP_ITS ---
DATE OF SERVICE: 02/17/2024 SURGEON: Sherwin Ulloa MD INDICATIONS: Change in bowel movements and family history of colon cancer. PREOPERATIVE DIAGNOSIS: POSTOPERATIVE DIAGNOSIS: PROCEDURE PERFORMED: Colonoscopy to the terminal ileum. ESTIMATED BLOOD LOSS: COMPLICATIONS: ANESTHESIA: Monitored anesthesia care. ASSISTANTS: SPECIMENS: DESCRIPTION OF PROCEDURE: A history and physical was performed. The risks and benefits of the procedure were explained to the patient and informed consent was obtained. The patient was placed in the left lateral decubitus position. A digital rectal exam was performed and was found to be normal. The Olympus pediatric video colonoscope was introduced into the rectum and advanced to the cecum. The cecum was identified by transillumination, palpation, and identification of ileocecal valve. Examination was performed and the scope was removed. She tolerated the procedure well and was taken to recovery area in stable condition. FINDINGS: The terminal ileum was examined and appeared normal. The visualized colonic mucosa was normal. The quality of the prep was good. No polyps were identified. There was mild sigmoid diverticulosis. Retroflexed examination was normal. IMPRESSION: Normal colonoscopy. RECOMMENDATIONS: 1. Follow up as needed. 2. Repeat colonoscopy for screening purposes not recommended based on age. MD BALTA Goodman/LISSET / [phone]
== END 2024-02-17 11:30 | disposition home or self-care (01) ==
PROVIDERS: PCP Internal Medicine; Visit Provider Internal Medicine Gastroenterology
PROC: 0DJD8ZZ Inspection of Lower Intestinal Tract, Via Natural or Artificial Opening Endoscopic (ICD-10-PCS; CPT 45378; principal; 2024-02-17 10:00)
DX: R19.4 Change in bowel habit (principal); K57.30 Diverticulosis of large intestine without perforation or abscess without bleeding; Z80.0 Family history of malignant neoplasm of digestive organs; I12.9 Hypertensive chronic kidney disease with stage 1 through stage 4 chronic kidney disease, or unspecified chronic kidney disease; N18.9 Chronic kidney disease, unspecified; Z79.899 Other long term (current) drug therapy; Z88.0 Allergy status to penicillin; Z88.1 Allergy status to other antibiotic agents
CPT/HCPCS: 45378; J2704

== ENCOUNTER → 2024-03-02 12:54 | Outpatient (REF) | payer MEDICARE, OTHER, SELFPAY ==
--- NOTE | 2024-03-02 12:58 | CA_ITS ---
Transthoracic Echocardiogram Patient (Last, First, Middle): Izzy Shen, Gender: Female Date of : 1940 Age: 84 Procedure Date: 03/02/2024 Procedure Type: Transthoracic Echocardiogram Location: OP Height: 160.02 cm Weight: 66.23 kg BSA: 1.69 m2 Heart Rate: 54 bpm BP: 118 / 50 mmHg Yarding Engineer: SB Referring MD: Nas Downing MD Carburetor Repairer: Dami Dominguez MD Symptoms: PRE HEAD OF STORE OPERATIONS VISIT, HTN, SWOLLEN ANKLES AND LEGS Study Quality: Adequate ECG Rhythm: Bradycardia Conclusions: - 1. Normal LV ejection fraction 65-70% with pseudonormal filling pattern 2. Fibrocalcific aortic valve changes noted with normal cardiac valvular Doppler 3. Borderline elevated right ventricular systolic pressure 4. No gross pericardial effusion Findings Left Ventricle Normal left ventricular size, thickness, and systolic function. The visually estimated ejection fraction is between 65-70%. Spectral Doppler is indicative of a pseudonormal filling pattern. E/E prime ratio is between 8 and 15 consistent with indeterminate filling pressures. Right Ventricle Normal right ventricular cavity size and systolic function. Atria The left atrium is likely dilated. There is no evidence of interatrial shunt. The right atrium is likely dilated. Aortic Valve There is mild calcification of the aortic valve. There is no aortic valve stenosis. There is no aortic valve regurgitation. Mitral Valve There is mild anterior and posterior mitral leaflet thickening. There is trace mitral valve regurgitation. There is no mitral valve stenosis. Pulmonic Valve The pulmonic valve is likely normal. Tricuspid Valve Normal tricuspid valve structure. There is mild tricuspid valve regurgitation. Normal right atrial pressure. There is no evidence of pulmonary hypertension. Great Vessels All visible segments of the aorta are normal in size. The pulmonary artery was not well visualized. There is no dilatation of the ascending aorta measuring 3.40 cm. Venous The inferior vena cava is normal in size and collapses greater than 50% with inspiration. Pericardium/Pleural There is no evidence of pericardial effusion. Prior Study Comparison No prior study available for comparison. Measurements 2D Linear Measurements IVSd: 0.70 0.6-0.9/0.6-1.0 cm LVIDd: 5.03 3.9-5.3/4.2-5.9 cm LVIDd Index: 2.98 2.4-3.2/2.2-3.1 cm/m2 LVIDs: 3.10 2.0-3.6 cm LVPWd: 0.76 0.7-1.1 cm LA Diam: 3.80 2.7-3.8/3.0-4.0 cm LAIDs Index: 2.25 1.5-2.3 cm/m2 LV Mass: 151.68 67-162/88-224 g LV Mass Index: 89.75 43-95/49-115 g/m2 LVOT Diam: 2.10 3.0+(-)1.3 cm 2D Systolic Function EF 4C: 67.90 >55% EF 2C: 73.10 >55% EF BiP: 69.30 >55% Mitral Valve MV Pk E: 0.90 MV PK A: 0.58 MV Decel Time: 195.00 E/A: 1.50 E'Lateral: 7.29 E'Medial: 7.29 E/E' Med: 12.30 E/E' Lat: 12.30 PHT: 57.00 MVA PHT: 3.86 Decel Story: 4.60 Aortic Valve AoV Pk Sivakumar: 1.62 AoV Pk Grad: 10.00 TASHA: 2.63 LVOT LVOT Pk Sivakumar: 1.23 LVOT Mn Sivakumar: 0.85 LVOT VTI: 0.30 LVOT Pk Grad: 6.00 LVOT Mn Grad: 3.00 LVOT Diam: 2.10 LVOT Area: 3.46 Diastolic Function MV Pk E: 0.90 MV Pk A: 0.58 E/A: 1.50 E'Medial: 7.29 E/E' Med: 12.30 E' Laterial: 7.29 E/E' Lat: 12.30 Right Ventricle TAPSE (mm): 24.40 TVS' Sivakumar: 12.30 Tricuspid Valve TR Pk Sivakumar: 2.90 TR Pk Grad: 34.00 RA Press: 3.00 RVSP: 37.00 Great Vessels Aorta Sinus of Valsalva: 2.90 2.0-3.5 cm Ao Asc: 3.40 2.1-3.4 cm Pulmonary Veins Pulm Vein S/D 1.00 Pulmonary Valve PV Pk Sivakumar: 0.95 Peak PV Grad: 4.00 Updated in Other Vendor System with Status of Final Dami Dominguez MD electronically signed on 03/02/2024 2:53:23 PM with status of Final
== END ==
LOC: HO.CARD 12:54
PROVIDERS: PCP Internal Medicine; Visit Provider Internal Medicine
DX: R01.1 Cardiac murmur, unspecified (principal)
CPT/HCPCS: 93306

== ENCOUNTER → 2024-03-02 12:58 | Outpatient (BNV) | payer MEDICARE, OTHER, SELFPAY | PROVIDERS: PCP Internal Medicine; Visit Provider Internal Medicine Cardiovascular Disease | DX: I35.8 Other nonrheumatic aortic valve disorders (principal); I36.1 Nonrheumatic tricuspid (valve) insufficiency | CPT/HCPCS: 93306 ==

== ENCOUNTER 2024-03-05 13:14 | Outpatient (REF) | payer MEDICARE, OTHER, SELFPAY ==
--- NOTE | ~2024-03-05 | US_ITS ---
EXAMINATION: US VENOUS ULTRASOUND WITH DOPPLER LOWER EXTREMITY, BILATERAL CLINICAL INFORMATION: Bilateral lower extremity edema COMPARISON: None available. TECHNIQUE: Ultrasound of the deep veins is performed from the hip to the calf with compression sonography and color and pulse Doppler assessment. Spectral analysis with color-flow imaging is performed. FINDINGS: RIGHT: There is normal venous compression and respiratory variation and augmented flow. The visualized common femoral vein, superficial femoral vein, profunda femoral vein, popliteal vein, and the trifurcation region shows no evidence of deep venous thrombosis. There is no significant popliteal fossa cyst. LEFT: There is normal venous compression and respiratory variation and augmented flow. The visualized common femoral vein, superficial femoral vein, profunda femoral vein, popliteal vein, and the trifurcation region shows no evidence of deep venous thrombosis. There is no significant popliteal fossa cyst. Prominent varicose veins are evident in the mid left thigh. If the patient's symptoms persist, followup ultrasound in 5 days 7 days might be of value to exclude proximal propagation from a non-visualized calf vein. US/US venous duplex LE BI IMPRESSION: No DVT demonstrated in the left or right lower extremity.
== END 2024-03-05 13:15 | disposition home or self-care (01) ==
LOC: HO.US 13:14
PROVIDERS: PCP Internal Medicine; Visit Provider Internal Medicine
DX: R60.9 Edema, unspecified (principal); R22.43 Localized swelling, mass and lump, lower limb, bilateral
CPT/HCPCS: 93970

== ENCOUNTER 2024-08-13 13:01 | Outpatient (REF) | payer MEDICARE, OTHER, SELFPAY ==
--- NOTE | ~2024-08-13 | MM_ITS ---
EXAMINATION: BONE DENSITOMETRY CLINICAL INDICATION: Asymptomatic menopausal state. COMPARISON: Previous BD dated 01/09/2021 and baseline BD dated 11/05/2007 (lumbar spine). This is the initial examination of the left forearm radius 33%. TECHNIQUE: Using a Strikeface DXA System (software version: 13.1) manufactured by [employer], dual-energy x-ray absorptiometry was performed of the lumbar spine and left forearm radius 33%. The patient has had bilateral hip replacements. The images are of good technical quality. Summary results are attached. FINDINGS: AP SPINE L1-L3 (excluding L4): The data of L1-L4 has been changed to exclude the L4 vertebral body, because degenerative sclerosis at this level may cause overestimation of lumbar spine density. Current: BMD 0.942 g/cm2, Z-score 0.1, T-score -1.9, osteopenia, 1.3% decrease from previous, 14.2% decrease from baseline (<5% change is not significant). Prior: BMD 0.954 g/cm2. Baseline: BMD 1.098 g/cm2. LEFT FOREARM RADIUS 33%: BMD 0.771 g/cm2, Z-score 1.9, T-score -1.2, osteopenia. IDENTIFIED RISK FACTORS: Height loss. Renal disease. Parental hip fracture. Hysterectomy. Bilateral oophorectomy. Menopause. HISTORY OF FRACTURE: None listed. MEDICATIONS: Calcium supplement and/or multivitamin. MM/XR DEXA axial skeleton IMPRESSION: 1. DIAGNOSIS: Osteopenia based on the lowest T-score value of -1.9 in the lumbar spine applying World Health Organization criteria. 2. 10-YEAR FRACTURE RISK PREDICTION, FRAX: Not performed in this patient without a femoral neck BMD measurement. 3. Treatment Recommendations: NOF guidelines recommend consideration for treatment in postmenopausal women and men age 50 and older presenting with the following: -A hip or vertebral (clinical or morphometric) fracture. -T-score less than or equal to -2.5 at the femoral neck or spine after appropriate evaluation to exclude secondary causes. -Low bone mass at the hip or spine and a 10-year fracture probability by FRAX of greater than or equal to 3% for hip fracture or greater than or equal to 20% for major osteoporotic fracture based on the [place] adapted WHO algorithm. 4. Other Recommendations: All treatment decisions require clinical judgment and consideration of individual patient factors, including patient preferences, comorbidities, previous drug use, risk factors not captured in the FRAX model (e.g. frailty, falls, vitamin D deficiency, increased bone turnover, interval significant decline in bone density) and possible under or overestimation of fracture risk by FRAX. Additional medical evaluation for secondary cause of low bone mineral density may be appropriate. FUTURE SCAN RECOMMENDATION: People with diagnosed cases of osteoporosis or at high risk for fracture should have regular bone mineral density tests. For patients eligible for Medicare, routine testing is allowed once every 2 years. The testing frequency can be increased to one year for patients who have rapidly progressing disease, those who are receiving or discontinuing medical therapy to restore bone mass, or have additional risk factors. Electronically signed by: Fernandez Cummings MD 08/16/2024 02:39 PM EDT RP
== END 2024-08-13 13:02 | disposition home or self-care (01) ==
LOC: HO.MAMMO 13:01
PROVIDERS: PCP Internal Medicine; Visit Provider Internal Medicine
DX: Z13.820 Encounter for screening for osteoporosis (principal); Z78.0 Asymptomatic menopausal state
CPT/HCPCS: 77080

== ENCOUNTER 2024-11-19 13:09 | Outpatient (REF) | payer MEDICARE, OTHER, SELFPAY ==
--- OUTSIDE RECORDS SUMMARY | 2024-11-19 13:25 | XMS_ITS | Encounter Summary ---
Author Organization [facility], Address [address] [place] [address] Phone Care Team Providers Care Administrative Medical Director Name Role Phone Nas Downing MD Primary Care Provider [phone] Encounter Details Date Type Department Care Team (Late st Contact Info) Description 10/27/2024 2:15 PM EST Office Visit [facility], [address] [address] Felix Farias DO [address] [place] [id number] Essential hypertension (Primary Dx); Hyperkalemia; Recurrent cystitis; Stage 3a chronic kidney disease (HCC) Social History Tobacco Use Types Packs/Day Years Used Date Smoking Tobacco: Former Cigarettes Q uit: 10/20/1972 Alcohol Use Standard Drinks/Week Comments Yes 0 (1 standard drink = 0.6 oz pure alcohol) Alcoholic Drinks/day: Occasional social drink Comments Unknown Sex and Gender Information Value Date Recorded Sex Assigned at Not on file Legal Sex Female 9:56 AM EST Gender Identity Not on file Sexual Orientation Not on file documented as of this encounter Last Filed Vital Signs Vital Sign Reading Time Taken Comments Blood Pressure 130/60 10/27/2024 2:49 PM EST Pulse 62 10/27/2024 2:49 PM EST Temperature - - Respiratory Rate - - Oxygen Saturation - - Inhaled Oxygen Concentration - - Weight - - Height - - Body Mass Index - - documented in this encounter Progress Notes * Felix Farias DO - 10/27/2024 2:15 PM EST Images from the original note were not included. PATIENT: Izzy Shen : 1940 ENCOUNTER: 10/27/2024 PCP: Nas Downing MD HPI: Izzy Shen is a 84 y.o. year old female with a history of elevated potassium levels with likely mild hypertensive CKD stage 3a for treatment of her today. She has history of some mild hypertensionas well as baseline serum creatinine around 1.1 mg/dL but no history of diabetes mellitus or urinary tract obstruction. She continues to see Dr. Delaney from urology for episodic urinary incontinence and urinary tract infections but more recently has been to a pelvic floor therapist and notes someimprovement. She denies any lower extremity edema and last potassium levels have been in the low 5 range without any issues. She came in today having had both hips replaced this past year and doing well. She was started on hydralazine 10 mg bid back in November now up to tid. No lightheadedness. Today's update: Izzy returned to the office today for routine follow-up. She feels well and denies any recent urinary tract symptomatology. She remains in good health overall and has no edema. Blood pressures been well-controlled for the most part as well but does notice increased blood pressures in the 140 systolic range in the afternoons. The remainder of a 12 point review of systems was obtained otherwise negative. ROS: Constitutional: No fever. Respiratory: No shortness of breath. Cardiovascular: No chest pain. Gastrointestinal: No abdominal pain, nausea or vomiting. Genitourinary: No hematuria. All other systems reviewed and are negative. PAST MEDICAL HISTORY: Patient Active Problem List Diagnosis Date Noted Recurrent cystitis 09/21/2021 Hyperkalemia 03/09/2020 Stage 3a chronic kidney disease (HCC) 03/07/2020 Essential hypertension Pain in lower limb Pure hypercholesterolemia Vitamin D deficiency Anemia Edema Microscopic hematuria Nocturia PAST SURGICAL HISTORY: Past Surgical History: Procedure Laterality Date GALLBLADDER SURGERY HYSTERECTOMY TONSILLECTOMY SOCIAL HISTORY: Social History Tobacco Use Smoking status: Former Current packs/day: 0.00 Types: Cigarettes Quit date: 10/20/1972 Years since quittin.0 Smokeless tobacco: Not on file Substance Use Topics Alcohol use: Yes Comment: Alcoholic Drinks/day: Occasional social drink FAMILY HISTORY: Family History Problem Relation Age of Onset Diabetes Mother Hypertension Father Hypertension Mother Heart disease Sibling Cancer Mother Stroke Mother Stroke Father Gout Sibling Dementia Mother MEDICATIONS: Outpatient Encounter Medications as of 10/27/2024 Medication Sig Dispense Refill hydrALAZINE (APRESOLINE) 10 MG tablet Take 2 tablets (20 mg total) by mouth in the morning and 2 tablets (20 mg total) at noon and 2 tablets (20 mg total) in the evening and 2 tablets (20 mg total) before bedtime. 720 tablet 3 amLODIPine (NORVASC) 5 MG tablet Take 5 mg by mouth 1 (one) time each day aspirin 81 MG tablet Take 81 mg by mouth 1 (one) time each day carvedilol CR (Coreg CR) 10 MG 24 hr capsule Take 1 capsule (10 mg total) by mouth 1 (one) time each day Do not crush or chew. 90 capsule 3 Multiple Vitamin (MULTIVITAMIN) tablet Take 1 tablet by mouth 1 (one) time each day Galt-3 1000 MG capsule Take 1 capsule by mouth twice a day [DISCONTINUED] hydrALAZINE (APRESOLINE) 10 MG tablet Take 10 mg by mouth in the morning and 10 mg in the evening and 10 mg before bedtime. No facility-administered encounter medications on file as of 10/27/2024. MEDICATION REVIEW: I have reviewed the patient's current medications. ALLERGIES: is allergic to atorvastatin, augmentin [amoxicillin-pot clavulanate], ciprofloxacin, clindamycin, honey, metoprolol tartrate, nitrofurantoin, and simvastatin. PHYSICAL EXAM: BP 130/60 Pulse 62 Constitutional: No apparent distress Cardiovascular: No friction rub. Pulmonary/Chest: No rales. Abdominal: Soft and non-tender. Extremities: Edema None LABS: No lab exists for component: LABALBU No lab exists for component: PTHINTACT LABORATORY REVIEW: I have reviewed the labs noted above as well as in the chart, in CIS and in Care Everywhere. DOCUMENTATION REVIEW: I have reviewed the applicable outside notes located in the chart, in CIS and in Care Everywhere. ASSESSMENT: 1. Essential hypertension 2. Hyperkalemia 3. Recurrent cystitis 4. Stage 3a chronic kidney disease (HCC) 1. Hyperkalemia - Mrs. Shen is a very pleasant 82 year-old female with history of well- controlled essential hypertension who appears to develop some age-related hyporeninemia (and likely mild CKD stage 3a) which isnot all that uncommon and can be associated with significant hypoaldosteronism-induced hyperkalemia. This seems to be well-controlled with diet at this point in time. - She has no signs or symptoms of adrenal insufficiency. She appears to have some mild age-related hypertensive chronic kidney disease - Will order labs and f/u in 12 months - Doing well on low potassium diet 2. Essential hypertension, not at goal - coreg CR 10 mg daily, amlodipine 5 mg daily - will increase hydralazine from 10 to 20 mg QID for BP mgmt with goal home SBP < 130 mmHg 3. History of Recurrent UTI - There is a prior history of some microhematuria but she is a lifetime non- smoker with normal renal imaging and followed by urology - With regards to her more frequent UTIs, I've recommended increased fluid intake and timed voidingto help diminish risk. We are going to try to avoid prophylactic antibiotics at this point and she will follow up with Dr. Delaney as well. - Performing pelvic floor [facility] - Estrogen cream per Dr. Delaney encouraged Thank you for allowing me to participate in Ms. Shen's care. With your permission I will see her back in the office in 6 to 8 months. Orders Placed This Encounter Renal Function Panel hydrALAZINE (APRESOLINE) 10 MG tablet documented in this encounter Plan of Treatment Upcoming Encounters Date Type Department Care Team (Late st Contact Info) Description 02/03/2025 2:45 PM EDT Office Visit [facility], [address] [phone] Felix Farias DO [address] [place] [phone] Scheduled Orders Name Type Priority Associated Diagnoses Orde r Schedule Renal Function Panel Lab Routine Essential hypertension Hyperkalemia Recurrent cystitis Stage 3a chronic kidney disease (HCC) Expected: 10/27/2024, Expires: 11/27/2025 documented as of this encounter Visit Diagnoses Diagnosis Essential hypertension- Primary Hyperkalemia Recurrent cystitis Stage 3a chronic kidney disease (HCC) documented in this encounter Care Teams Administrative Medical Director Relationship Specialty Start Date End Date Nas Downing MD [address] [place] [address] PCP - General Internal Medicine 03/07/20 documented as of this encounter
--- OUTSIDE RECORDS SUMMARY | 2024-11-19 13:25 | XMS_ITS | Clinical Summary ---
Author Organization [facility] Address [address] [place] [address] Care Team Providers Care Melt Down Furnace Operator Name Role Phone Nas Downing MD Primary Care Provider [phone] Allergies Active Allergy Reactions Criticality Noted Date Comments Amoxicillin-Pot Clavulanate Nausea And Vomiting Low 08/19/2017 NAUSEA AND VOMITING Ciprofloxacin 03/07/2020 NAUSEA AND VOMITING Clindamycin Nausea And Vomiting High 08/19/2017 Patient does not want to take this medication at all NAUSEA AND VOMITING Nitrofurantoin Itching,Nausea And Vomiting 05/06/2021 Medications Medication Sig Dispensed Refills Start Date End Date Status amLODIPine (NORVASC) tablet 5 mg Take 1 tablet by mouth daily. 0 08/10/2020 Active aspirin 81 MG EC tablet Take 81 mg by mouth. 0 Acti ve carvedilol (COREG) 3.125 MG tablet carvedilol 3.125 mg tablet 0 01/05/2021 Active Multiple Vitamin (multivitamin) tablet Take 1 tablet by mouth. 0 Active Island-3 Fatty Acids (Fish Oil) 1000 MG CAPS Take 1 capsule by mouth daily. 0 Active Social History Tobacco Use Types Packs/Day Years Used Date Smoking Tobacco: Never Assessed Sex and Gender Information Value Date Recorded Sex Assigned at Not on file Gender Identity Not on file Sexual Orientation Not on file Job Start Date Occupation Industry Not on file Not on file Not on file Last Filed Vital Signs Vital Sign Reading Time Taken Comments Blood Pressure - - Pulse - - Temperature - - Respiratory Rate - - Oxygen Saturation - - Inhaled Oxygen Concentration - - Weight 59 kg (130 lb) 08/17/2021 1:48 PM EDT Height 162.6 cm (5' 4 ) 08/17/2021 1:48 PM EDT Body Mass Index 22.31 08/17/2021 1:48 PM EDT Plan of Treatment Health Maintenance Due Date Last Done Comments Depression Screening 1952 Preventative Health Evaluation 02/06/1958 Shingrix-Zoster Vaccine (1 o f 2) 02/06/1990 Fall Risk Assessment 02/06/2005 Osteoporosis Screening (DEXA Scan) 02/06/2005 RSV Adult > 60+ Yrs or (1 - 1-dose 75+ series) 02/06/2015 DTap / Tdap / Td (1 - Tdap) 09/04/201608/20, 09/19/2005 COVID-19 Vaccine (3 - 2023-2 5 season) 2024 12/19/2020, 11/28/2020 Influenza Vaccine (#1) 2024 Pneumococcal Vaccine Completed 10/24/2015, 10/11/2010 Hepatitis B Vaccines Aged Out No long er eligible based on patient's age to complete this topic RSV Ped < 20 months Aged Out No longe r eligible based on patient's age to complete this topic Care Teams Melt Down Furnace Operator Relationship Specialty Start Date End Date Nas Downing MD [address] [place] [address] PCP - General Internal Medicine 08/17/21
--- OUTSIDE RECORDS SUMMARY | 2024-11-19 13:25 | XMS_ITS | Encounter Summary ---
Author Organization [facility], Address [address] [place] [address] Phone Care Team Providers Care Sulfur Burner Name Role Phone Nas Downing MD Primary Care Provider [phone] Encounter Details Date Type Department Care Team (Late Contact Info) Description 08/14/2023 Documentation Only [facility], [address] [place] [address] Felix Farias DO [address] [place] [address] Social History Tobacco Use Types Packs/Day Years [...] on file documented as of this encounter Plan of Treatment Upcoming Encounters Date Type Department Care Team (Late st Contact Info) Description 02/03/2025 2:45 PM EDT Office Visit [facility] [address] [place] [address] Felix Farias DO [address] [place] [address] documented as of this encounter Visit Diagnoses Not on filedocumented in this encounter Care Teams Sulfur Burner Relationship Specialty Start Date End Date Nas Downing MD [address] [place] [address] PCP - General Internal Medicine 03/07/20 documented as of this encounter
--- OUTSIDE RECORDS SUMMARY | 2024-11-19 13:25 | XMS_ITS | Clinical Summary ---
Author Organization [facility], Address [address] [place] [address] [place] [address] Phone Care Team Providers Care Enterprise Resource Analyst Name Role Phone Nas Downing MD Primary Care Provider [phone] Allergies Active Allergy Reactions Criticality Noted Date Comments Atorvastatin Other (see comments) 09/20/2021 Amoxicillin-Pot Clavulanate 03/07/2020 NAUSEA AND VOMITING Ciprofloxacin Other (see comments) 03/07/2020 NAUSEA AND VOMITING Clindamycin 03/07/2020 NAUSEA AND VOMITING Honey Other (see comments) 04/25/2022 Other reaction(s): Other Metoprolol Tartrate Other (see comments) 09/20/2021 Nitrofurantoin Itching,Nausea And Vomiting 05/06/2021 Simvastatin Other (see comments) 09/20/2021 Medications amLODIPine (NORVASC) 5 MG tablet Take 5 mg by mouth 1 (one) time each day Active aspirin 81 MG tablet Take 81 mg by mouth 1 (one) time each day Active Multiple Vitamin (MULTIVITAMIN) tablet Take 1 tablet by mouth 1 (one) time each day Active [place]-3 1000 MG capsule Take 1 capsule by mouth twice a day Active carvedilol CR (Coreg CR) 10 MG 24 hr capsule Take 1 capsule (10 mg total) by mouth 1 (one) time each day Do not crush or chew. 90 capsule 3 4 02/19/20 25 Active hydrALAZINE (APRESOLINE) 10 MG tabletIndicatio ns:Essential hypertension,Hy perkalemia,Recu rrent cystitis,Stage 3a chronic kidney disease (HCC) Take 2 tablets (20 mg total) by mouth in the morning and 2 tablets (20 mg total) at noon and 2 tablets (20 mg total) in the evening and 2 tablets (20 mg total) before bedtime. 720 tablet 3 5 10/27/19 26 Active hydrALAZINE (APRESOLINE) 10 MG tablet Take 10 mg by mouth in the morning and 10 mg in the evening and 10 mg before bedtime. 10/27/19 25 Discontinu ed(Reorder (does not appear on AVS)) Active Problems Problem Noted Date Diagnosed Date Recurrent cystitis 09/21/2021 Hyperkalemia 03/09/2020 Stage 3a chronic kidney disease 03/07/2020 Overview (10/23/2020): Update for Diagnosis Load Essential hypertension Pain in lower limb Pure hypercholesterolemia Vitamin D deficiency Anemia Edema Microscopic hematuria Nocturia Resolved Problems Problem Noted Date Diagnosed Date Resolved Date Hypokalemia 09/20/2020 Encounters Date Type Department Care Team Description 11/09/2024 Telephone [facility] [address] [place] [address] Michelle Silvestre 10/27/2024 2:15 PM EST Office [facility] [address] [place] [address] Felix Farias DO Essential hypertension (Primary Dx); Hyperkalemia; Recurrent cystitis; Stage 3a chronic kidney disease (HCC) from Last 3 Months Immunizations Name Administration Dates Next Due Pfizer SARS-COV-2 12/19/2020,11/28/2020 Pneumococcal Conjugate 13-Valent 10/24/2015 Pneumococcal Polysaccharide 10/11/2010, 0 TD Preservative Free 09/03/2016,09/19/2005 Zoster 11/21/2011 Family History Medical History Relation Comments Hypertension Father Stroke Father Cancer Mother Dementia Mother Diabetes Mother Hypertension Mother Stroke Mother Heart disease Sibling 1 Gout Sibling 2 Relation Status Comments Father Mother Sibling 1 Sibling 2 Social History Tobacco Use Types Packs/Day Years [...] on file Sexual Orientation Not on file Last Filed Vital Signs Vital Sign Reading Time Taken Comments Blood Pressure 130/60 10/27/2024 2:49 PM EST Pulse 62 10/27/2024 2:49 PM EST Temperature - - Respiratory Rate - - Oxygen Saturation - - Inhaled Oxygen Concentration - - Weight - - Height - - Body Mass Index - - Plan of Treatment Upcoming Encounters Date Type Department Care Team (Late st Contact Info) Description 02/03/2025 2:45 PM EDT Office Visit [facility], [address] [place] [id number] Felix Farias, [address] [place] [address] Health Maintenance Due Date Last Done Comments Influenza Vaccine (#1) 2024 Pneumococcal Vaccine: 65+ Years Completed 10/24/2015, 10/11/2010, 03/20/2010 Hepatitis B Vaccine Aged Out No longe r eligible based on patient's age to complete this topic Insurance MEDICARE [facility] Care Teams Enterprise Resource Analyst Relationship Specialty Start Date End Date Nas Downing MD [address] [place] [address] PCP - General Internal Medicine 03/07/20
--- OUTSIDE RECORDS SUMMARY | 2024-11-19 13:25 | XMS_ITS | Encounter Summary ---
Author Organization [facility], Address [address] [place] [address] Phone Care Team Providers Care Business Services Coordinator Name Role Phone Nas Downing MD Primary Care Provider [phone] Encounter Details Date Type Department Care Team (Late Contact Info) Description 11/09/2024 Telephone [facility], [address] [place] [address] Michelle Silvestre [address] [place] [address] Social History Tobacco Use Types Packs/Day Years [...] on file documented as of this encounter Miscellaneous Notes * Telephone Encounter - Michelle Silvestre - 11/09/2024 10:[address] Farias, call from pt to report she's been taking the Hydralzine 10mg qid and BP has been reading in the higher 120's in the morning but 140's in the evening. Looking for advise- thanks! documented in this encounter Plan of Treatment Upcoming Encounters Date Type Department Care Team (Late Contact Info) Description 02/03/2025 2:45 PM EDT Office Visit [facility], [address] [place] [address] Felix Farias DO [address] [place] [address] documented as of this encounter Visit Diagnoses Not on filedocumented in this encounter Care Teams Business Services Coordinator Relationship Specialty Start Date End Date Nas Downing MD [address] [place] [address] PCP - General Internal Medicine 03/07/20 documented as of this encounter
--- OUTSIDE RECORDS SUMMARY | 2024-11-19 13:25 | XMS_ITS | Encounter Summary ---
Author Organization [facility], Address [address] [place] [address] Phone Care Team Providers Care Lens Edge Grinder Machine Name Role Phone Nas Downing MD Primary Care Provider [phone] Encounter Details Date Type Department Care Team (Late Contact Info) Description 08/04/2023 Documentation Only [facility], [address] [place] [address] Felix Farias DO [address] [place] [address] Social History Tobacco Use Types [...] Visit [facility] [address] [place] [address] Felix Farias DO [address] [place] [address] documented as of this encounter Visit Diagnoses Not on filedocumented in this encounter Care Teams Lens Edge Grinder Machine Relationship Specialty Start Date End Date Nas Downing MD [address] [place] [address] PCP - General Internal Medicine 03/07/20 documented as of this encounter
--- OUTSIDE RECORDS SUMMARY | 2024-11-19 13:25 | XMS_ITS | Encounter Summary ---
Author Organization [facility] [place], Address [address] [place] [address] Phone Care Team Providers Care Bin Piler Name Role Phone Nas Downing MD Primary Care Provider [phone] Encounter Details Date Type Department Care Team (Late Contact Info) Description 02/16/2024 Documentation Only [facility] [address] [place] [address] Felix Farias DO [address] [place] [address] Social History Tobacco Use Types [...] Visit [facility] [address] [place] [address] Felix Farias DO [address] [place] [address] documented as of this encounter Visit Diagnoses Not on filedocumented in this encounter Care Teams Bin Piler Relationship Specialty Start Date End Date Nas Downing MD [address] [place] [address] PCP - General Internal Medicine 03/07/20 documented as of this encounter
== END 2024-11-19 13:10 | disposition home or self-care (01) ==
LOC: HO.MAMMO 13:09
PROVIDERS: PCP Internal Medicine; Visit Provider Internal Medicine
DX: Z12.31 Encounter for screening mammogram for malignant neoplasm of breast (principal)
CPT/HCPCS: 77063; 77067

== ENCOUNTER → 2024-11-19 13:30 | Outpatient (BNV) | payer MEDICARE, OTHER, SELFPAY | PROVIDERS: PCP Internal Medicine; Visit Provider Internal Medicine | DX: Z12.31 Encounter for screening mammogram for malignant neoplasm of breast (principal) | CPT/HCPCS: 77063; 77067 ==

== ENCOUNTER 2025-01-25 09:41 | Outpatient (REF) | payer MEDICARE, OTHER, SELFPAY ==
[2025-01-25 10:15] LABS: MANUAL DIFF FLAG NO
[2025-01-25 10:33] LABS: Basophils Absolute Auto 0.1 X10*3/uL (0.0-0.2); Eosinophils Absolute Auto 0.5 X10*3/uL (0.0-0.4); Eosinophils Percent Auto 7.6 % (0-4); Hematocrit 32.1 % (37.0-47.0); Hemoglobin 10.9 g/dl (12.0-16.0); Imm Gran Abs Auto 0.01 X10*3/uL (0.00-0.03); Imm Gran Pct Auto 0.1 % (0.0-0.4); Lymphocytes Absolute Auto 1.1 X10*3/uL (1.2-4.9); Mean Corpuscular Hemoglobin 32.2 pg (27.0-33.0); Mean Corpuscular Volume 94.7 fL (80.0-98.0); Mean Platelet Volume 9.5 fL (9.4-12.3); Monocytes Absolute Auto 0.7 X10*3/uL (0.1-1.2); Monocytes Percent Auto 9.9 % (2-11); Neutrophils Absolute Auto 4.6 x10*3/uL (2.0-8.3); Neutrophils Percent Auto 65.4 % (45-73); Platelet Count 222 X10*3/uL (160-400); Red Blood Count 3.39 X10*6/uL (4.20-5.50); Red Cell Distribution Width 12.6 % (11.0-16.0)
[2025-01-25 10:50] LABS: Estimated Average Glucose 114 mg/dL; Hemoglobin A1c % 5.6 % (<6.0); Total Hemoglobin (HGBA1C) 2958.0442 umol/L
--- OUTSIDE RECORDS SUMMARY | 2025-01-25 11:08 | XMS_ITS ---
Author Organization [facility] Address [address] [place] [address] Care Team Providers Care Paper Core Machine Operator Name Role Phone Nas Downing MD Primary Care Provider Sherwin Billingsley Jr [phone] REASON FOR VISIT bowel change Encounters Encounter Location Date Provider Diagnosis [facility] [address] [place], [place] [id number] 02/17/2024 Sherwin Ulloa Jr Encounter for screening colonoscopy Z12.11 and Family history of colon cancer Z80.0 Assessments Encounter Date Diagnosis (ICD Code) Assessment Notes Treatment Notes Treatment Clinical Notes Section Notes 02/17/2024 Encounter for screening colonoscopy (ICD-10 - Z12.11) 02/17/2024 Family history of colon cancer (ICD-10 - Z80.0) Plan Of Treatment No Information Progress Notes * EDENILSON WIN EDOB:[birth year] (84 yo F)Acc No.[id number]:02/17/2024 COLON WITH MAC Patient:?EDENILSON WIN Provider:?Sherwin Ulloa MD :1940???Age:84 Y???Sex:Female D ate:02/17/2024 Address:[address] [place], [place] Pcp:Nas Downing MD Subjective: * Chief Complaints: * ???1. Bowel change. * Medical History:? Objective: * Vitals:? Assessment: * Assessment: 1.?Encounter for screening c olonoscopy - Z12.11 (Primary)???2.?Family history of colon cancer - Z80.0??? Plan: * Treatment: * Procedure Codes:?G0105 COLOR EC CANCR SCR; COLNSCPY HI RISK, 54030 DIAGNOSTIC COLONOSCOPY, 0529F INTRVL 3+YRS PTS CLNSCP DOCD, 0528F RCMND FLW-UP 10 YRS DOCD, Modifiers: 8P * * The named appointment provid er may or may not be the originator of this progress note, and it is not deemed complete until electronically signed by the appointment provider. Sign off status: Pending * Provider:?Sherwin Ulloa MD Date:?0 02/17/2024 Generated for Samantha chen/Chad/Brayanitting on:?01/25/2025 11:08 AM EDT
--- OUTSIDE RECORDS SUMMARY | 2025-01-25 11:08 | XMS_ITS | Encounter Summary ---
Author Organization [facility], Address [address] [place] [address] Phone Care Team Providers Care Terrazzo Tile Maker Name Role Phone Nas Downing MD Primary Care Provider [phone] Encounter Details Date Type Department Care Team (Late Contact Info) Description 02/16/2024 Documentation Only [facility] [address] [place] [address] Felix Farias DO [address] [place] [address] Social History Tobacco Use Types [...] Visit [facility] [address] [place] [address] Felix Farias DO [address] [place] [address] documented as of this encounter Visit Diagnoses Not on filedocumented in this encounter Care Teams Terrazzo Tile Maker Relationship Specialty Start Date End Date Nas Downing MD [address] [place] [address] PCP - General Internal Medicine 03/07/20 documented as of this encounter
--- OUTSIDE RECORDS SUMMARY | 2025-01-25 11:08 | XMS_ITS | Clinical Summary ---
Author Organization [facility] Address [address] [place] [address] Care Team Providers Care Blackjack Supervisor Name Role Phone Nas Downing MD Primary Care Provider [phone] Allergies Active Allergy Reactions Criticality Noted Date [...] Take 1 tablet by mouth. 0 Active [place]-3 Fatty Acids (Fish Oil) 1000 MG CAPS [...] age to complete this topic Care Teams Blackjack Supervisor Relationship Specialty Start Date End Date Nas Downing MD [address] [facility] [place] [address] PCP - General Internal Medicine 08/17/21
--- OUTSIDE RECORDS SUMMARY | 2025-01-25 11:08 | XMS_ITS ---
Author Name [facility] Organization Unknown Encounters Encounter Type Encounter Reason Primary Diagnosis Location Date Ambulatory [facility] 02/25/2023 Ambulatory [facility] 02/19/2023 Ambulatory [facility] 02/11/2023
--- OUTSIDE RECORDS SUMMARY | 2025-01-25 11:08 | XMS_ITS | Encounter Summary ---
Author Organization [facility] [place], Address [address] [place] [address] Phone Care Team Providers Care Stave Block Roller Name Role Phone Nas Downing MD Primary Care Provider [phone] Encounter Details Date Type Department Care Team (Late Contact Info) Description 08/04/2023 Documentation Only [facility] [place], [address] [place] [address] Felix Farias DO [address] [place] [address] Social History Tobacco Use Types [...] Visit [facility] [address] [place] [address] Felix Farias DO [address] [place] [address] documented as of this encounter Visit Diagnoses Not on filedocumented in this encounter Care Teams Stave Block Roller Relationship Specialty Start Date End Date Nas Downing MD [address] [place] [address] PCP - General Internal Medicine 03/07/20 documented as of this encounter
--- OUTSIDE RECORDS SUMMARY | 2025-01-25 11:08 | XMS_ITS | Encounter Summary ---
Author Organization [facility] [place], Address [address] [place] [address] Phone Care Team Providers Care Slice Cutting Machine Operator Name Role Phone Nas Downing MD Primary Care Provider Encounter Details Date Type Department Care Team (Late Contact Info) Description 08/14/2023 Documentation Only [facility] [place], [address] [place] [address] Felix Farias DO [address] [place] [address] Social History Tobacco Use Types [...] Visit [facility] [address] [place] [address] Felix Farias DO [address] [place] [place] [address] documented as of this encounter Visit Diagnoses Not on filedocumented in this encounter Care Teams Slice Cutting Machine Operator Relationship Specialty Start Date End Date Nas Downing MD [address] [place] [address] PCP - General Internal Medicine 03/07/20 documented as of this encounter
--- OUTSIDE RECORDS SUMMARY | 2025-01-25 11:09 | XMS_ITS ---
Author Organization [facility] Address [address] [place] [address] Care Team Providers Care Manager Harbor Name Role Phone Nas Downing MD Primary Care Provider Maurilio Ulloa Jr, Sherwin Unavailable Medications Medication SIG (Take, Route, Frequency, Duration) Notes Start Date End Date Status MiraLax (colon prep) 8.3 ounce ((238) grams mixed with Gatorade or Crystal Light orally begin at 5:00 p.m. the day before the procedure for 1 day 12/25/2023 Active Dulcolax (colon prep) 5 MG take at 3:00 p.m and 7:00p.m. Orally two tablets twice a day for one day for 1 day 12/25/2023 Active Encounters Encounter Location Date Provider Diagnosis [facility] [address] [address] 12/25/2023 Sherwin Ullao Jr Plan Of Treatment Medication Medication Name Sig Start Date Stop Date Notes MiraLax (colon prep) 8.3 oun ce ((238) grams mixed with Gatorade or Crystal Light orally begin at 5:00 p.m. the day before the procedure for 1 day 12/25/2023 Dulcolax (colon prep) 5 MG take at 3:00 p.m and 7:00p.m. Orally two tablets twice a day for one day for 1 day 12/25/2023 Progress Notes * EDENILSON WIN EDOB:[birth year] (83 yo F)Acc No.[id number]:12/25/2023 Patient:?EDENILSON WIN :1940???Age:83 Y???Sex:Female Address: [address], [place] [address] * Refills? Start MiraLax (colon prep), 8.3 ounce ((238) grams, orally, 1 container, mixed with Gatorade or Crystal Light, begin at 5:00 p.m. the day before the procedure, 1 day, Refills=no refills Start Dulcolax (colon prep) Tablet Delayed Release, 5 MG, Orally, 4, take at 3:00 p.m and 7:00p.m., two tablets twice a day for one day, 1 day * true * Date:? Generated for Samantha chen/Chad/Brayanitting on:?01/25/2025 11:08 AM EDT
--- OUTSIDE RECORDS SUMMARY | 2025-01-25 11:09 | XMS_ITS ---
Author Organization [facility] Address [address] [place] [address] Care Team Providers Care Tube Sizer And Cutter Operator Name Role Phone Nas Downing MD Primary Care Provider Sherwin Billingsley Jr REASON FOR VISIT bowel leakage Encounters Encounter Location Date Provider Diagnosis [facility] [address] [facility] [place] [address] 03/01/2024 Sherwin Ulloa Jr Plan Of Treatment No Information Progress Notes * EDENILSON WIN EDOB:[birth year] (84 yo F)Acc No.[id number]:03/01/2024 Progress Notes Patient:?EDENILSON WIN Provider:?Sherwin Ulloa MD :1940???Age:84 Y???Sex:Female D ate:03/01/2024 Address:[address] [place] Pcp:Nas Downing MD Subjective: * Chief Complaints: * ???1. Bowel leakage. * Medical History:? Objective: * Vitals:? Assessment: Plan: * Treatment: * * The named appointment provid er may or may not be the originator of this progress note, and it is not deemed complete until electronically signed by the appointment provider. Sign off status: Pending * Provider:?Sherwin Ulloa MD Date:?0 03/01/2024 Generated for Printi ng/Faxing/eTransmitting on:?01/25/2025 11:08 AM EDT
--- OUTSIDE RECORDS SUMMARY | 2025-01-25 11:09 | XMS_ITS | Patient Health Record ---
Author Organization [facility] Address [address] [place] [address] Care Team Providers Care Cloth Hauler Name Role Phone Nas Downing MD Primary Care Provider Sherwin Billingsley Jr Unavailable Allergies Allergen (clinical drug ingredient) Drug/Non Drug Allergy documented on EMR Reaction Allergy Type Onset Date Status nitrofurantoin, macrocrystals / nitrofurantoin, monohydrate Macrobid Unknown Drug Allergy Active clindamycin Clindamycin HCl Unknown Drug Allergy Active ciprofloxacin Cipro Unknown Drug Allergy Act chaitanya amoxicillin / clavulanate Augmentin Unknown Drug Allergy Active masquitos (uncoded) Unknown Allergy Active Bee Sting Unknown Allergy Active Honey Unknown Drug Allergy Active Reason For Referral No Information Medications Medication SIG (Take, Route, Frequency, Duration) Notes Start Date End Date Status MiraLax (colon prep) 8.3 ounce ((238) grams mixed with Gatorade or Crystal Light orally begin at 5:00 p.m. the day before the procedure for 1 day 12/25/2023 Active MiraLax (colon prep) 17 GM/SCOOP mixed with Gatorade or Crystal Light Orally begin at 5:00 p.m. the day before the procedure for 1 day 12/18/2023 Active Carvedilol Phosphate ER 10 MG Oral for 30 Active hydrALAZINE HCl 10 MG TAKE 1 TABLET BY M OUTH TWICE A DAY Oral for 90 Active Estradiol 0.1 MG/GM Vaginal for 90 Active Dulcolax (colon prep) 5 MG take at 3:00 p.m and 7:00p.m. Orally two tablets twice a day for one day for 1 day 12/25/2023 Active amLODIPine Besylate 5 MG 1 tablet Orally Once a day Active Cranberry Active Centrum Silver 1 1 Orally qd A ctive Aspir-81 81 MG 1 tablet Orally Once a day Active Fish Oil 1000 MG 2 capsule Orally Onc e a day Active Problems Problem Type SNOMED Code ICD Code Onset Dates Problem Status W/U Status Risk Notes Problem 312770123 Colon cancer screening (Z12.11) Active confirmed Problem 64440688 Hypertension (I10) Active confirmed Problem 923090812 Gastroesophageal reflux disease without esophagitis (K21.9) Active confirmed Problem 105105972 Gas (R14.3) Active confirmed Problem 001095067 Family history o f colon cancer (Z80.0) Active confirmed Problem 95568775 Change in bowel movement (R19.8) Active confirmed Encounters Encounter Location Date Provider Diagnosis [facility] [address] [place] [address] [id number] 02/17/2024 Sherwin Ulloa Jr Encounter for screening colonoscopy Z12.11 and Family history of colon cancer Z80.0 Assessments Encounter Date Diagnosis (ICD Code) Assessment Notes Treatment Notes Treatment Clinical Notes Section Notes 02/17/2024 Encounter for screening colonoscopy (ICD-10 - Z12.11) 02/17/2024 Family history of colon cancer (ICD-10 - Z80.0) Plan Of Treatment Future Test Test Name Order Date COLONOSCOPY 08/28/2016 COLONOSCOPY 12/18/2023 Insurance Providers Payer Name Payer Address Payer Phone Subscriber Number Group Number Insured Name Patient Relationship to Insured Coverage Start Date Coverage End Date MEDICARE OF [place] [address] [place] [address] [phone] [id number] EDENILSON WIN Self - patient is the insured [facility] [address] [place] [address] [id number] EDENILSON WIN Self - patient is the insured Medical (General) History Medical History History ICD Code Colonoscopy 01/22/17, negative for adenomas, 5 year followup optional for family history and prior history of adenomatous Gastroesophageal reflux dise ase, EGD 09/29, no Landin's esophagus or H. pylori Hypertension Hyperlipidemia Chronic renal insufficiency Osteoarthritis Aneurysm left eye Sensorineural hearing loss Anemia Surgical History Surgery Date(Month/Year) hysterectomy cholecystectomy tonsillectomy Bilateral hip replacements
--- OUTSIDE RECORDS SUMMARY | 2025-01-25 11:09 | XMS_ITS | Clinical Summary ---
Author Organization [facility], Address [address] [place] [address] [place] [address] Phone Care Team Providers Care Hygiene Teacher Name Role Phone Nas Downing MD Primary Care Provider [phone] Allergies Active Allergy Reactions Criticality Noted Date [...] mouth 1 (one) time each day Active Hayden-3 1000 MG capsule Take 1 capsule by mouth twice a day Active carvedilol CR (Coreg CR) 10 MG 24 hr capsule Take 1 capsule (10 mg total) by mouth 1 (one) time each day Do not crush or chew. 90 capsule 3 02/19/2024 5 Active hydrALAZINE (APRESOLINE) 10 MG tabletIndicatio ns:Essential hypertension,Hy perkalemia,Recu rrent cystitis,Stage 3a chronic kidney disease (HCC) Take 2 tablets (20 mg total) by mouth in the morning and 2 tablets (20 mg total) at noon and 2 tablets (20 mg total) in the evening and 2 tablets (20 mg total) before bedtime. 720 tablet 3 10/27/2024 6 Active Active Problems Problem Noted Date Diagnosed Date [...] Telephone [facility], [address] [place] [address] Michelle Silvestre 10/27/2024 2:15 PM EST Office [facility], [address] [place] [address] Felix Farias DO Essential hypertension (Primary Dx); [...] Visit [facility], [address] [place] [address] Felix Farias DO [address] [place] [address] Health Maintenance Due Date Last Done Comments Influenza Vaccine (Season Ended) 2025 Pneumococcal Vaccine: 65+ Years Completed 10/24/2015, 10/11/2010, 03/20/2010 Hepatitis B Vaccine Aged Out No longe r eligible based on patient's age to complete this topic Insurance MEDICARE [facility] Care Teams Hygiene Teacher Relationship Specialty Start Date End Date Nas Downing MD [address] [place] [address] PCP - General Internal Medicine 03/07/20
[2025-01-25 11:21] LABS: Alanine Aminotransferase 12 U/L (0-31); Albumin Level 3.8 g/dL (3.5-5.0); Alkaline Phosphatase 49 U/L (39-117); Anion Gap 9 (12-20); Aspartate Amino Transferase 23 U/L (5-31); Bilirubin Total 0.4 mg/dL (0.0-1.0); Blood Urea Nitrogen 18 mg/dL (9-16); Calcium 9.2 mg/dL (8.4-10.2); Carbon Dioxide 26 mmol/L (22-29); Chloride 109 mmol/L (96-108); Cholesterol 169 mg/dL (<200); Estimated Glomerular Filt Rate 54; Glucose Random 96 mg/dL (60-115); HDL Cholesterol 44 mg/dL (>40); LDL Cholesterol Calculated 105 mg/dL (<100); Sodium 139 mmol/L (135-145); Total Protein 6.9 g/dL (6.5-8.0); Triglycerides 101 mg/dL (<150)
[2025-01-25 11:40] LABS: Thyroid Stimulating Hormone 0.89 uIU/mL (0.32-4.0)
== END 2025-01-25 09:42 | disposition home or self-care (01) ==
LOC: HO.LAB 09:41
PROVIDERS: PCP Internal Medicine; Visit Provider Internal Medicine
DX: I10 Essential (primary) hypertension (principal); E78.00 Pure hypercholesterolemia, unspecified; R73.01 Impaired fasting glucose
CPT/HCPCS: 36415; 80053; 80061; 83036; 84443; 85025

== ENCOUNTER 2025-08-02 09:33 | Outpatient (REF) | payer MEDICARE, OTHER, SELFPAY ==
--- OUTSIDE RECORDS SUMMARY | 2024-02-17 06:00 | XMS_ITS ---
Author Organization [facility] Address [address] [place] [address] Care Team Providers Care Industrial Hygiene Manager Name Role Phone Nas Downing MD Primary Care Provider Sherwin Billingsley Jr Unavailable REASON FOR VISIT bowel change Encounters Encounter Location Date Provider Diagnosis [facility] Outpatient [address], [place] [id number] 02/17/2024 Sherwin Ulloa Jr Encounter for screening colonoscopy Z12.11 and Family history of colon cancer Z80.0 Assessments Encounter Date Diagnosis (ICD Code) Assessment Notes Treatment Notes Treatment Clinical Notes Section Notes 02/17/2024 Encounter for screening colonoscopy (ICD-10 - Z12.11) 02/17/2024 Family history of colon cancer (ICD-10 - Z80.0) Plan Of Treatment No Information Progress Notes * EDENILSON WIN EDOB:[birth year] (85 yo F)Acc No.[id number]:02/17/2024 COLON WITH MAC Patient: EDENILSON WONG Provider: Zander Ulloa MD :1940 A ge:84 Y S ex:Female Date:02/17/2024 Address:[address], [place] Pcp:Nas Downing MD Subjective: * Chief Complaints: * 1 . Bowel change. * Medical History: Objective: * Vitals: Assessment: * Assessment: 1. E ncounter for screening colonoscopy - Z12.11 (Primary) 2 . F amily history of colon cancer - Z80.0 Plan: * Treatment: * Procedure Codes: G 0105 COLOREC CANCR SCR; COLNSCPY HI RISK, 31329 DIAGNOSTIC COLONOSCOPY, 0529F INTRVL 3+YRS PTS CLNSCP DOCD, 0528F RCMND FLW-UP 10 YRS DOCD, Modifiers: 8P * * The named appointment provid er may or may not be the originator of this progress note, and it is not deemed complete until electronically signed by the appointment provider. Sign off status: Pending * Provider: Zander Ulloa MD Date: 0 02/17/2024 Generated for Samantha chen/Chad/Brayanitting on: 1 10:42 AM EDT
--- OUTSIDE RECORDS SUMMARY | 2024-03-01 09:35 | XMS_ITS ---
Author Organization [facility] Address [address] [place], [place] [address] [place] [address] Care Team Providers Care Brazer Controlled Atmospheric Furnace Name Role Phone Nas Downing MD Primary Care Provider Sherwin Billingsley Jr [phone] REASON FOR VISIT bowel leakage Encounters Encounter Location Date Provider Diagnosis [facility] [address] [place] [address] 03/01/2024 Sherwin Ulloa Jr Plan Of Treatment No Information Progress Notes * EDENILSON WIN EDOB:[birth year] (85 yo F)Acc No.[id number]:03/01/2024 Progress Notes Patient: EDENILSON WONG Provider: Zander Ulloa MD :1940 A ge:84 Y S ex:Female Date:03/01/2024 Address:[address] [facility] Pcp:Nas Downing MD Subjective: * Chief Complaints: * 1 . Bowel leakage. * Medical History: Objective: * Vitals: Assessment: Plan: * Treatment: * * The named appointment provid er may or may not be the originator of this progress note, and it is not deemed complete until electronically signed by the appointment provider. Sign off status: Pending * Provider: aZnder Ulloa MD Date: 0 03/01/2024 Generated for Printi ng/Faxing/eTransmitting on: 1 10:41 AM EDT
[2025-08-02 09:46] LABS: MANUAL DIFF FLAG NO
[2025-08-02 10:08] LABS: Hematocrit 33.2 % (37.0-47.0); Hemoglobin 11.2 g/dl (12.0-16.0); Imm Gran Abs Auto 0.02 X10*3/uL (0.00-0.03); Imm Gran Pct Auto 0.3 % (0.0-0.4); Lymphocytes Absolute Auto 1.5 X10*3/uL (1.2-4.9); Mean Corpuscular HGB Conc 33.7 g/dl (31.0-35.0); Mean Corpuscular Hemoglobin 32.5 pg (27.0-33.0); Mean Corpuscular Volume 96.2 fL (80.0-98.0); NRBC Abs Auto 0.000 X10*3/uL (0.0-0.012); NRBC Pct Auto 0.0 /100WBC (0.0-0.2); Platelet Count 243 X10*3/uL (160-400); Red Blood Count 3.45 X10*6/uL (4.20-5.50); White Blood Count 7.2 X10*3/uL (4.8-10.8)
--- OUTSIDE RECORDS SUMMARY | 2025-08-02 10:41 | XMS_ITS | Clinical Summary ---
Author Organization [facility] Address [address] [place] [address] Care Team Providers Care Paver Layer Name Role Phone Nas Downing MD Primary Care Provider [phone] Allergies Active Allergy Reactions Criticality Noted Date [...] Take 1 tablet by mouth. 0 Active Hayes-3 Fatty Acids (Fish Oil) 1000 MG CAPS [...] Tdap) 09/04/201608/20, 09/19/2005 COVID-19 Vaccine (3 - 2024-2 6 season) 2025 12/19/2020, 11/28/2020 Influenza Vaccine (#1) 2025 Pneumococcal Vaccine Completed 10/24/2015, 10/11/2010 Hepatitis B Vaccines Aged Out No long er eligible based on patient's age to complete this topic RSV Ped < 20 months Aged Out No longe r eligible based on patient's age to complete this topic Care Teams Paver Layer Relationship Specialty Start Date End Date Nas Downing MD [address] [facility] [address] PCP - General Internal Medicine 08/17/21
--- OUTSIDE RECORDS SUMMARY | 2025-08-02 10:41 | XMS_ITS | Clinical Summary ---
Author Organization [facility] Address [address] [place] [address] Phone Care Team Providers Care Berry Grower Name Role Phone Nas Downing MD Primary Care Provider [phone] Felix Farias DO Unavailable [phone] Nas Downing MD Unavailable [phone] Allergies Active Allergy Reactions Criticality Noted Date Comments Amoxicillin-Pot Clavulanate Nausea and/or Vomiting,Nausea And Vomiting,Nausea Only Low 08/19/2017 NAUSEA AND VOMITING NAUSEA AND VOMITING NAUSEA AND VOMITING NAUSEA AND VOMITING Atorvastatin 09/20/2021 Other reaction(s): Other (see comments) Other reaction(s): Other Other reaction(s): Other (see comments) Ciprofloxacin Nausea Only 03/07/2020 Other reaction(s): Other (see comments) NAUSEA AND VOMITING Other reaction(s): Other NAUSEA AND VOMITING NAUSEA AND VOMITING Other reaction(s): Other (see comments) NAUSEA AND VOMITING Ciprofloxacin (Mixture) Nausea and/or Vomiting Low 08/19/2017 Clindamycin Nausea And Vomiting High 08/19/2017 Patient does not want to take this medication at all NAUSEA AND VOMITING Patient does not want to take this medication at all NAUSEA AND VOMITING NAUSEA AND VOMITING Patient does not want to take this medication at all NAUSEA AND VOMITING Patient does not want to take this medication at all Clindamycin Hcl Nausea and/or Vomiting High 08/19/2017 Patient does not want to take this medication at all Honey 04/25/2022 Other reaction(s): Other Other reaction(s): Other Other reaction(s): Other Other reaction(s): Other Other reaction(s): Other Metoprolol 09/20/2021 Other reaction(s): Other Other reaction(s): Other (see comments) Metoprolol Tartrate 09/20/2021 Other reaction(s): Other (see comments) Nitrofurantoin Itching,Nausea And Vomiting,Nausea Only 05/06/2021 Nitrofurantoin Monohyd/M-Cryst Itching,Nausea and/or Vomiting,Nausea Only 05/06/2021 Simvastatin 09/20/2021 Other reaction(s): Other (see comments) Other reaction(s): Other Other reaction(s): Other (see comments) Medications omega-3 fatty acids-fish oil 340-1,000 mg Cap Take 1 capsule by mouth daily. Active multivitamin per tablet Take 1 tablet by mouth daily. Active estradioL (ESTRACE) 0.01 % (0.1 mg/gram) vaginal cream PLACE 1 GRAM VAGINALLY 3 TIMES PER WEEK 3 Active cranberry extract/vitamin C (AZO CRANBERRY PLUS VIT C ORAL) Take 2 capsules by mouth daily. 3 Active carvedilol (COREG CR) 10 MG 24 hr capsuleIndication s:Benign essential hypertension Take 1 capsule (10 mg total) by mouth daily. 30 capsule 3 4 Active aspirin 81 MG EC tablet Take 81 mg by mouth daily. Active amoxicillin (AMOXIL) 250 MG capsule Take 1,000 mg by mouth. 1 hour prior to dental procedures Active amLODIPine (NORVASC) 5 MG tabletIndications :Benign essential hypertension TAKE 1 TABLET (5 MG TOTAL) BY MOUTH DAILY. 90 tablet 3 5 Active hydrALAZINE (APRESOLINE) 10 MG tabletIndications :Benign essential hypertension Take 2 tablets (20 mg total) by mouth 4 (four) times a day. 360 tablet 3 5 02/02/20 27 Active Active Problems Problem Noted Date Diagnosed Date Cardiac murmur, unspecified 12/16/2023 Overview (06/10/2024): 05/18/24 Saw [facility] cardiology Dr. Elliott Kimble for murmur- murmur thought to be flow related as ECHO did not show any valvular abnormalities. She has LE edema- and they gave her furosemide , and compression stockings- f/u in 6m with [facility] Assessment & Plan (12/16/2023 2:02 PM EST): Murmur on exam no prev echo. She requests/ Will ref to [facility] cardiology Dr. Dhiraj Kimble. She knows to call and book appt and if she has trouble to call us back Edema, lower extremity 12/16/2023 Assessment & Plan (12/16/2023 2:04 PM EST): Edema is pres B/L LE 2+ up [address] She has compression stocking but has not been using- advised to try them again. Ref to cardiology to eval her murmur, and see if this is contributing to the swelling Sialoadenitis 02/24/2019 Otalgia, left ear 02/24/2019 Mixed conductive and sensori neural hearing loss of left ear with restricted hearing of right ear 02/03/2019 Dizziness 02/03/2019 Dysfunction of left eustachian tube 02/03/2019 Chronic rhinitis 02/03/2019 Anemia 01/20/2018 Back pain 01/20/2018 Stage 3 chronic kidney disease 01/20/2018 Edema of both feet 01/20/2018 Essential hypertension 01/20/2018 Assessment & Plan (12/16/2023 1:59 PM EST): Elevated today in the office she is taking Amlodipine 5mg po qd/ hydralazine 10mg po tid, carvedilol CR 10mg po qd Microscopic hematuria 01/20/2018 HTN (hypertension) 01/20/2018 Hyperlipidemia 01/20/2018 Assessment & Plan (12/16/2023 2:01 PM EST): Not on statin, takes fish oil, cont same Varicose veins of both lower extremities 018 Assessment & Plan (12/16/2023 2:00 PM EST): 2+ pitting edema up [address] B/L LE. She has compression stockings and a side zip stocking she vanessa try to use this- Pure hypercholesterolemia 01/20/2018 Osteopenia 01/20/2018 Generalized osteoarthritis 01/20/2018 Nocturia 01/20/2018 Encounters Date Type Department Care Team Description 05/23/2025 Telephone [facility] [place] [facility] [address] [facility] [place] [address] Nas Downing MD Facial Pain from Last 3 Months Immunizations Immunization Administration Dates Next Due COVID-19 (Pre-08/11) Pfizer Vaccine, mRNA, PF ,11/28/2020 Pneumococcal conjugate PCV13 10/24/2015 Pneumococcal polysaccharide PPSV23 10/11/2010, Td (adult) 5 Lf Tetanus Toxoid, PF, Adsorbed ,09/19/2005 Zoster live 11/21/2011 Family History Medical History Relation Comments Rheumatic fever Brother as a child Stroke Father Transient ischemic attack Mother Hypertension Sister Allergies Son 1 Asthma Son 1 Asthma Son 2 Hearing loss Neg Hx Relation Status Comments Brother Father (Age 65) at 65 y/ o d/t massive stroke Mother at either 8 6 or 88 y/o On cert there was a ? of colon cancer Sister Alive Son 1 Son 2 Alive Social History Tobacco Use Types Packs/Day Years Used Date Smoking Tobacco: Former Cigarettes 0.3 10 0 01/22/1957 - 01/22/1961 Smokeless Tobacco: Never Tobacco Cessation:Counseling Given: Not Answered Alcohol Use Standard Drinks/Week Comments Yes 0 (1 standard drink = 0.6 oz pure alcohol) 2oz of wine during special functions but rare Education Answer Date Recorded Are you interested in more education? Not on nestor e 02/14/2023 Are you concerned about learning? Not on file 02/14/2023 No 02/14/2023 No 02/14/2023 Digital Access Answer Date Recorded No 03/11/2023 No 03/11/2023 Reliable internet access at home? Not on file 03/11/2023 Device with a working camera? Not on file Intimate Partner Violence Answer Date R ecorded Denied Basic Needs Not on file 02/11/2025 In the past 12 months have y ou been in a relationship with a person who hurts, threatens, or tries to control you? No 02/11/2025 Worried food would run out Not on file 02/11 In the past 12 months have y ou been in a relationship with a person who hurts, threatens, or tries to control you? No 02/11/2025 Comments Unknown Sex and Gender Information Value Date Recorded Sex Assigned at Not on file Legal Sex Female 2:07 PM EDT Gender Identity Not on file Sexual Orientation Not on file Last Filed Vital Signs Vital Sign Reading Time Taken Comments Blood Pressure 130/58 02/11/2025 12:48 PM EDT Pulse 55 02/11/2025 12:48 PM EDT Temperature 36.2 C (97.2 F) 02/11/2025 12:48 PM EDT Respiratory Rate 20 02/11/2025 12:48 PM EDT Oxygen Saturation 98% 02/11/2025 12:48 PM EDT Inhaled Oxygen Concentration - - Weight 65 kg (143 lb 3.2 oz) 02/11/2025 12:48 PM EDT Height 160.7 cm (5' 3.27 ) 02/11/2025 12:48 PM E DT Body Mass Index 25.15 02/11/2025 12:48 PM EDT Plan of Treatment Upcoming Encounters Date Type Department Care Team (Late st Contact Info) Description 08/15/2025 1:30 PM EDT Office Visit [facility] [place] [facility] [address] [place] [address] Nas Downing MD [address] [place] [address] [email or web address] Health Maintenance Due Date Last Done Comments ZOSTER VACCINES (2 of 3) 01/16/2012 11/21/2011 RSV VACCINE (1 - 1-dose 75+ series) 02/06/2015 INFLUENZA VACCINE (#1) 2025 COVID-19 VACCINE (2024-2 6 season) 2025 10/06/2021, 12/19/2020, 11/28/2020 BLOOD PRESSURE 08/13/2025 02/11/2025 DEPRESSION SCREENING 02/11/2026 02/11/2025 FOLLOW UP BONE DENSITY TESTING 08/13/2026 1 , 01/09/2021, 01/30/2018 Adult Td,Tdap Booster 09/03/2026 09/03/2016 , 09/19/2005 PNEUMOCOCCAL VACCINES (50+ years) Completed 10/24/2015, 10/11/2010, 03/20/2010 OSTEOPOROSIS SCREENING INITI AL (ONE-TIME) Completed 08/13/2024, 01/09/2021, 01/30/2018 HEPATITIS A VACCINES Aged Out No long er eligible based on patient's age to complete this topic HIB VACCINES Aged Out No longer eligi ble based on patient's age to complete this topic MENINGOCOCCAL VACCINES (ACWY) Aged Out No longer eligible based on patient's age to complete this topic MENINGOCOCCAL VACCINES (B) Aged Out N o longer eligible based on patient's age to complete this topic Medical Devices Not on file Procedures Procedure Name Priority Date/Time Associated Diagnosis Comments HM DEXA SCAN Routine 08/13/2024 9:15 AM EDT from Last 3 Months or Most Recently Relevant to Health Maintenance Results * HM DEXA SCAN (08/13/2024 9:15 AM EDT) Historical Provider HEALTH MAINTENANCE Final Result from Last 3 Months or Most Recently Relevant to Health Maintenance Insurance MEDICARE PART A & B Member Subscriber Plan / Payer (Ef fective 2005-Present) Name:Izzy Shen Member ID:[id number] Relation to Subscriber:Self Name:Izzy Shen Subscriber ID:[id number] Payer ID:[id number] Group ID:Not on file Type:Medicare Address: [facility] [employer] [facility]. [address] [place] [address] [facility] MEDICARE SUPPLEMENT MEDICARE PART A & B [employer] MEDICARE SUPPLEMENT MEDICARE PART A & B [facility] MEDICARE SUPPLEMENT MEDICARE PART A & B [facility] MEDICARE SUPPLEMENT MEDICARE PART A & B [facility] MEDICARE SUPPLEMENT MEDICARE PART A & B [facility] MEDICARE SUPPLEMENT MEDICARE PART A & B [employer] MEDICARE SUPPLEMENT MEDICARE PART A & B [employer] MEDICARE SUPPLEMENT MEDICARE PART A & B [facility] MEDICARE SUPPLEMENT Care Teams Berry Grower Relationship Specialty Start Date End Date Nas Downing MD [address] [place] [address] PCP - General 08/07/17 Felix Farias DO [address] [place] [address] [phone] Nephrology 08/28/20 Nas Downing MD [address] [place] [address] Insurance Assigned Provider 01/24/24 Additional Source Comments The information contained in this document represents components of the legal health record. It is not the complete legal health record.[facility]
--- OUTSIDE RECORDS SUMMARY | 2025-08-02 10:42 | XMS_ITS | Encounter Summary ---
Author Organization [facility], Address [address] [facility] [address] [place] [address] Phone Care Team Providers Care Firebreak Cutter Name Role Phone Nas Downing MD Primary Care Provider [phone] Encounter Details Date Type Department Care Team (Late Contact Info) Description 02/04/2025 Documentation Only [facility] [address] [place] [address] Kami Crespo [address] [place] [address] Social History Tobacco Use Types [...] Care Team (Late st Contact Info) Description 02/03/2026 1:30 PM EDT Office Visit [facility] [address] [place] [address] Felix Farias [address] [place] [address] documented as of this encounter Visit Diagnoses Not on filedocumented in this encounter Care Teams Firebreak Cutter Relationship Specialty Start Date End Date Nas Downing MD [address] [place] [id number] PCP - General Internal Medicine 03/07/20 documented as of this encounter
--- OUTSIDE RECORDS SUMMARY | 2025-08-02 10:42 | XMS_ITS | Encounter Summary ---
Author Organization [facility], Address [address] [place] [address] Phone Care Team Providers Care Wall Worker Name Role Phone Nas Downing MD Primary Care Provider [phone] Encounter Details Date Type Department Care Team (Late Contact Info) Description 08/04/2023 Documentation Only [facility] [address] [place] [address] Felix Farias DO [address] [facility] [address] [place] [address] Social History Tobacco Use Types [...] Visit [facility] [address] [place] [address] Felix Farias DO [address] [place] [address] documented as of this encounter Visit Diagnoses Not on filedocumented in this encounter Care Teams Wall Worker Relationship Specialty Start Date End Date Nas Downing MD [address] [place] [address] PCP - General Internal Medicine 03/07/20 documented as of this encounter
--- OUTSIDE RECORDS SUMMARY | 2025-08-02 10:42 | XMS_ITS ---
Author Name [facility] Organization Unknown Encounters Encounter Type Encounter Reason Primary Diagnosis Location Date Ambulatory [facility] 02/25/2023 Ambulatory [facility] 02/19/2023 Ambulatory [facility] 02/11/2023
--- OUTSIDE RECORDS SUMMARY | 2025-08-02 10:42 | XMS_ITS | Patient Health Record ---
Author Organization [facility] Address [address] [facility] [place] [address] Care Team Providers Care Boat Detailer Name Role Phone Nas Downing MD Primary Care Provider Unavaila parmjit Gato Britta Unavailable [phone] Allergies Allergen (clinical drug ingredient) Drug/Non Drug Allergy documented on EMR Reaction Allergy Type Onset Date Status amoxicillin / clavulanate Augmentin vomiting Drug Allergy Active Reason For Referral No Information Medications Medication SIG (Take, Route, Frequency, Duration) Notes Start Date End Date Status Carvedilol 3.125 MG Orally Active amLODIPine Besylate 10 MG 1 tablet Orall y Once a day Active Glucosamine & Fish Oil 713-246-32-40 MG 1 capsule with meals Orally Three times a day Active Centrum Silver Orally Activ e Social History Tobacco use other than smoking: Question Answer Notes Are you an other tobacco user? No Problems No Known Problems Plan Of Treatment No Information Insurance Providers Payer Name Payer Address Payer Phone Subscriber Number Group Number Insured Name Patient Relationship to Insured Coverage Start Date Coverage End Date Medicare National [employer]t [employer] [address] [place] [address] [id number] Izzy Shen Self - patient is the insured [facility] [address] [place] [address] [id number] Izzy Shen Self - patient is the insured Medical (General) History Medical History History ICD Code Anemia osteoarthritis Back,Hip,and Knee pain High blood pressure chronic sinusitis Measles Mumps Chicken pox Surgical History Surgery Date(Month/Year) hysterectomy 1993 gall bladder 2009 tonsillectomy and adenoidectomy Child
--- OUTSIDE RECORDS SUMMARY | 2025-08-02 10:42 | XMS_ITS | Encounter Summary ---
Author Organization [facility] Address [address] [place] [address] Phone Care Team Providers Care Field Identification Specialist Name Role Phone Nas Downing MD Primary Care Provider [phone] Nas Downing MD Unavailable [phone] Nas Downing MD Unavailable Felix Farias DO Unavailable Nas Downing MD Unavailable [phone] Nas Downing MD Unavailable [phone] Encounter Details Date Type Department Care Team (Late Contact Info) Description 02/03/2019 Procedure Pass [facility] - MRI, [address] [address] Social History Tobacco Use Types Packs/Day Years Used Date Smoking Tobacco: Former Cigarettes 0.3 13 0 01/23/1960 - 01/22/1973 Smokeless Tobacco: Never Comments:quit 56 years ago Alcohol Use Standard Drinks/Week Comments Yes 1 (1 standard drink = 0.6 oz pur e alcohol) Comments Unknown Sex and Gender Information Value Date Recorded Sex Assigned at Not on file Legal Sex Female 2:07 PM EDT Gender Identity Not on file Sexual Orientation Not on file documented as of this encounter Plan of Treatment Upcoming Encounters Date Type Department Care Team (Late st Contact Info) Description 08/15/2025 1:30 PM EDT Office Visit [facility] Internal Medicine [address] [place] [address] Nas Downing MD [address] [place] [address] documented as of this encounter Visit Diagnoses Not on filedocumented in this encounter Additional Health Concerns Assessment Noted Time PHQ-2 Depression Total Score: 0 01/23/20 11:09 AM EDT documented as of this encounter Care Teams Field Identification Specialist Relationship Specialty Start Date End Date Nas Downing MD [address] [place] [address] PCP - General 08/07/17 Nas Downing MD [address] [place], [place] [id number] Insurance Assigned Provider 01/17/1807/17 Nas Downing MD [address] [place] [address] Insurance Assigned Provider 07/31/1911/19 Felix Farias DO [address] [place] [address] [id number] Nephrology 08/28/20 Nas Downing MD [address] [place] [address] Insurance Assigned Provider 01/27/21 Nas Downing MD [address] [place] [address] Insurance Assigned Provider 01/24/24 documented as of this encounter Additional Source Comments The information contained in this document represents components of the legal health record. It is not the complete legal health record.[facility]
--- OUTSIDE RECORDS SUMMARY | 2025-08-02 10:42 | XMS_ITS | Encounter Summary ---
Author Organization [facility], Address [address] [place] [address] Phone Care Team Providers Care Gun Perforator Loader Name Role Phone Nas Downing MD Primary Care Provider [phone] Encounter Details Date Type Department Care Team (Late Contact Info) Description 02/15/2025 Documentation Only [facility] [address] [place] [address] Felix Farias DO [address] [place] [address] Social History Tobacco Use Types [...] Visit [facility] [address] [place] [address] Felix Farias DO [address] [place] [address] documented as of this encounter Visit Diagnoses Not on filedocumented in this encounter Care Teams Gun Perforator Loader Relationship Specialty Start Date End Date Nas Downing MD [address] [place] [address] PCP - General Internal Medicine 03/07/20 documented as of this encounter
--- OUTSIDE RECORDS SUMMARY | 2025-08-02 10:42 | XMS_ITS | Encounter Summary ---
Author Organization [facility], Address [address] [place] [address] Phone Care Team Providers Care Community Health Agent Name Role Phone Nas Downing MD Primary Care Provider [phone] Encounter Details Date Type Department Care Team (Late Contact Info) Description 08/14/2023 Documentation Only [facility] [address] [place] [place] [address] Felix Farias DO [address] [place] [address] Social History Tobacco Use Types [...] Visit [facility] [address] [place] [address] Felix Farias DO [address] [place] [address] documented as of this encounter Visit Diagnoses Not on filedocumented in this encounter Care Teams Community Health Agent Relationship Specialty Start Date End Date Nas Downing MD [address] [place] [address] PCP - General Internal Medicine 03/07/20 documented as of this encounter
--- OUTSIDE RECORDS SUMMARY | 2025-08-02 10:42 | XMS_ITS | Encounter Summary ---
Author Organization [facility], Address [address] [place] [address] Phone Care Team Providers Care Calciner Operator Helper Name Role Phone Nas Downing MD Primary Care Provider [phone] Encounter Details Date Type Department Care Team (Late Contact Info) Description 02/16/2024 Documentation Only [facility] [address] [place] [address] Felix Farias DO [address] [place] [address] Social History Tobacco Use Types [...] Visit [facility] [address] [place] [address] Felix Farias DO [address] [place] [address] documented as of this encounter Visit Diagnoses Not on filedocumented in this encounter Care Teams Calciner Operator Helper Relationship Specialty Start Date End Date Nas Downing MD [address] [place] [address] PCP - General Internal Medicine 03/07/20 documented as of this encounter
[2025-08-02 10:43] LABS: Anion Gap 13 (12-20); Blood Urea Nitrogen 15 mg/dL (9-16); Calcium 9.4 mg/dL (8.4-10.2); Carbon Dioxide 25 mmol/L (22-29); Chloride 107 mmol/L (96-108); Estimated Glomerular Filt Rate 49; Iron 91 mcg/dL (30-160); Percent Iron Saturation 45 % (15-50); Potassium 5.0 mmol/L (3.3-5.1); Sodium 140 mmol/L (135-145); Total Iron Binding Capacity 204 mcg/dL (228-428); Unsaturated Iron Binding 113 ug/dL
--- OUTSIDE RECORDS SUMMARY | 2025-08-02 10:43 | XMS_ITS | Patient Health Record ---
Author Organization [facility] Address [address] [place] [address] Care Team Providers Care Bituminous Distributor Operator Name Role Phone Nas Downing MD [...] at 5:00 p.m. the day before the procedure; Duration: 1 day 12/25/2023 Active MiraLax (colon prep) 17 GM/SCOOP mixed with Gatorade or Crystal Light Orally begin at 5:00 p.m. the day before the procedure; Duration: 1 day 12/18/2023 Active Carvedilol Phosphate ER 10 MG Oral; Duration: 30 Active hydrALAZINE HCl 10 MG TAKE 1 TABLET BY M OUTH TWICE A DAY Oral; Duration: 90 Active Estradiol 0.1 MG/GM Vaginal; Duration: 90 Active Dulcolax (colon prep) 5 MG take at 3:00 p.m and 7:00p.m. Orally two tablets twice a day for one day; Duration: 1 day 12/25/2023 Active amLODIPine Besylate 5 MG 1 tablet Orally Once a day Active Cranberry Active Centrum Silver 1 1 Orally qd A ctive Aspir-81 81 MG 1 tablet Orally Once a day Active Fish Oil 1000 MG 2 capsule Orally Onc e a day Active Problems Problem Type SNOMED Code ICD Code Onset Dates Problem Status W/U Status Risk Notes Problem Colon cancer screening (486316044) Colon cancer screening (Z12.11) Active confirmed Problem Hypertension (26970442) Hypertension (I10) Active confirmed Problem Gastroesophageal reflux disease without esophagitis (743067761) Gastroesophageal reflux disease without esophagitis (K21.9) Active confirmed Problem Gas (07292001) Gas (R14.3) Active confirmed Problem Family History of Cancer of Colon (Situation) (526589836) Family history of colon cancer (Z80.0) Active confirmed Problem Altered bowel function (20120683) Change in bowel movement (R19.8) Active confirmed Plan Of Treatment Future Test Test Name Order Date COLONOSCOPY 08/28/2016 COLONOSCOPY 12/18/2023 Insurance Providers Payer Name Payer Address Payer Phone Subscriber Number Group Number Insured Name Patient Relationship to Insured Coverage Start Date Coverage End Date MEDICARE OF [place] [address] [place] [address] [phone] [id number] EDENILSON WIN Self - patient is the insured [facility] [employer] [address] [place] [address] [id number] EDENILSON WIN Self - patient is the [...]
--- OUTSIDE RECORDS SUMMARY | 2025-08-02 10:43 | XMS_ITS | Clinical Summary ---
Author Organization [facility], Address [address] [place] [address] [place] [address] Phone Care Team Providers Care Novelty Balloon Assembler And Packer Name Role Phone Nas Downing MD Primary Care Provider [phone] Allergies Active Allergy Reactions Criticality Noted Date [...] mouth 1 (one) time each day Active Ruthton-3 1000 MG capsule Take 1 capsule by mouth twice a day Active hydrALAZINE (APRESOLINE) 10 MG tabletIndicatio ns:Essential hypertension,Hy perkalemia,Recu rrent cystitis,Stage 3a chronic kidney disease (HCC) Take 2 tablets (20 mg total) by mouth in the morning and 2 tablets (20 mg total) at noon and 2 tablets (20 mg total) in the evening and 2 tablets (20 mg total) before bedtime. 720 tablet 3 10/27/2024 Active carvedilol CR (COREG CR) 10 MG 24 hr capsule Take 1 capsule (10 mg total) by mouth 1 (one) time each day Do not crush or chew. 90 capsule 3 02/16/2025 6 Active Active Problems Problem Noted Date Diagnosed Date Recurrent cystitis 09/21/2021 Hyperkalemia 03/09/2020 Stage 3a chronic kidney disease 03/07/2020 Overview (10/23/2020): Update for Diagnosis Load Essential hypertension Pain in lower limb Pure hypercholesterolemia Vitamin D deficiency Anemia Edema Microscopic hematuria Nocturia Resolved Problems Problem Noted Date Diagnosed Date Resolved Date Hypokalemia 09/20/2020 Immunizations Immunization Administration Dates Next Due Pfizer SARS-COV-2 12/19/2020,11/28/2020 [...] Sign Reading Time Taken Comments Blood Pressure 130/76 02/03/2025 2:54 PM EDT Pulse 68 02/03/2025 2:54 PM EDT Temperature - - Respiratory Rate - - Oxygen Saturation - - Inhaled Oxygen Concentration - - Weight - - Height - - Body Mass Index - - Plan of Treatment Upcoming Encounters Date Type Department Care Team (Late st Contact Info) Description 02/03/2026 1:30 PM EDT Office Visit [facility], [address] [place] [address] Felix Farias, [address] [place] [address] Health Maintenance Due Date Last Done Comments Influenza Vaccine (#1) 2025 Pneumococcal Vaccine: 50+ Years Completed 10/24/2015, 10/11/2010, 03/20/2010 Pneumococcal Vaccine: Peds (0 to 5 Years) and At-Risk Patients (6 to 49 Years) Discontinued 10/24/2015, 10/11/2010, 03/20/2010 Hepatitis B Vaccine Aged Out No longe r eligible based on patient's age to complete this topic Insurance Medicare [facility] Care Teams Novelty Balloon Assembler And Packer Relationship Specialty Start Date End Date Nas Downing MD [address] [place] [address] PCP - General Internal Medicine 03/07/20
[2025-08-02 11:06] LABS: Ferritin 211 ng/mL (10-250)
== END 2025-08-02 09:34 | disposition home or self-care (01) ==
LOC: HO.LAB 09:33
PROVIDERS: PCP Internal Medicine; Visit Provider Internal Medicine
DX: I10 Essential (primary) hypertension (principal); D64.9 Anemia, unspecified
CPT/HCPCS: 36415; 80048; 82728; 83540; 85025